=== PATIENT | female | born 1945 | race Two or more races ===

== ENCOUNTER 2018-05-07 09:42 | Inpatient (IN) | payer MEDICARE, OTHER ==
[~2018-05-07] VITALS: Ht 172.7 cm; Wt 93.4 kg
[~2018-05-07 09:42] MED LIST: ASPI-667 PO; ATOR40TA PO; CHOL100011 PO; ESCI10TA10 PO; METO25TA4 PO; TICA90TA PO
[2018-05-07 10:08] VITALS: BP_DIAS 164
[2018-05-07] MEDS ORDERED: DUONEB 0.5 MG-3 MG/3 ML SOLN IH STA (10:25)
[2018-05-07] MEDS ORDERED: PREDNISONE PO STA (10:25)
[2018-05-07] MEDS ORDERED: DECADRON IH STA (10:25)
--- NOTE | 2018-05-07 10:28 | ER.PDOC ---
General Chief Complaint: Chest Pain-Cardiac Nature Stated Complaint: FEVER,SOB,EARACHE,WEAKNESS Time seen by MD: 11:00 Exam Limitations: no limitations History of Present Illness Aspirin Today: 81 mg x 1 Associated Symptoms: cough, diaphoresis, fever/chills, shortness of breath Prior symptoms/Treatment: Similar symptoms previous Allergies: Coded Allergies: morphine (Verified Allergy, Unknown, Hives, 05/07/18) niacin (Verified Allergy, Unknown, Rash, 05/07/18) warfarin (Verified Allergy, Unknown, Rash, 05/07/18) Past Medical History Medical History: CVA/TIA/stroke, heart attack Surgical History: appendectomy, cholecystectomy, neck LMP (females 10-50): hysterectomy Social History Smoking: non-smoker Alcohol Use: occassionally Drug Use: none Reviewed Nursing Reviewed: Vital Signs, Abn. 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
[2018-05-07] MEDS ORDERED: PREDNISONE ONE (10:31)
--- NOTE | 2018-05-07 10:37 | PCM.EKG ---
[facility] Test Date: 2018-05-07 Test Time: 10:37:34 Pat Name: WENDI ALEJO Department: [id number] Room: Gender: F Assistant Track Coach: MARGARITA : 1945 Requested By: CHELSEA PEREIRA Order Number: [id number] Reading MD: Measurements Intervals [place] Rate: 90 P: 42 MS: 174 QRS: 14 QRSD: 86 T: 39 QT: 376 QTc: 459 Interpretive Statements Normal sinus rhythm Normal ECG No previous ECG available for comparison Please click the below link to view image of tracing.
[2018-05-07] MEDS: NORCO 10MG PO PRN ×2 (10:44→13:03)
[2018-05-07 10:45] LABS: BASOPHIL % 0.5 % (0.0-0.2); EOSINOPHIL # 0.2 10^3/uL (0.0-0.2); EOSINOPHIL % 3.2 % (0.0-5.0); HEMOGLOBIN 13.9 g/dL (12.0-15.0); LYMPHOCYTES # 1.3 10^3/uL (1.0-4.8); LYMPHOCYTES % 19.1 % (24.0-44.0); MEAN CELL HGB 31.1 pg (26-34); MEAN CELL HGB CONCENTRATION 34.1 g/dL (33-37); MEAN CORP VOLUME 91.3 fL (78-100); MEAN PLATELET VOLUME 10.1 fL (7.8-11.0); MONOCYTES # 0.8 10^3/uL (0.3-0.8); MONOCYTES % 11.6 % (5.0-12.0); NEUTROPHIL # 4.3 10^3/uL (1.8-7.7); NEUTROPHILS % 65.4 % (41.0-85.0); RED CELL DISTRIBUTION WIDTH 13.8 % (11.5-14.5); WHITE BLOOD CELL 6.5 10^3/uL (4.5-11.0)
--- NOTE | 2018-05-07 11:09 | NUR ---
RAD PT OUT OF ROOM
[2018-05-07 11:11] LABS: ALANINE AMINOTRANSFERASE(ML) 33 U/L (12-78); ALKALINE PHOSPHATASE 147 U/L (50-136); ASPARTATE AMINO TRANSFERASE 27 U/L (0-35); CALCIUM 9.2 mg/dL (8.4-10.5); CARBON DIOXIDE 26.3 mmol/L (20.0-32); GLUCOSE 111 mg/dL (70-110)
--- NOTE | 2018-05-07 11:52 | DIREP ---
PROCEDURE:CHEST 2 VIEWS COMPARISON:None. INDICATIONS:cap FINDINGS: LUNGS/PLEURA:Senescent changes. No significant pulmonary parenchymal abnormalities. No effusions. VASCULATURE:Normal. Unremarkable pulmonary vasculature. CARDIAC:Normal. No cardiac silhouette abnormality or cardiomegaly. MEDIASTINUM:Mediastinal contours are within normal limits with calcifications of the aorta. BONES:Minimal degenerative changes of the thoracic spine. Previous ACDF. OTHER:Apparent previous cholecystectomy. CONCLUSION:No acute cardiopulmonary abnormality. Dictated by: Lorenzo Mullins M.D. on 05/07/2018 at 11:49 AM
[2018-05-07] MEDS ORDERED: TORADOL IV STA (11:56)
[2018-05-07] MEDS ORDERED: NS 1000ML 1,000 ML IV ONE (12:00)
--- NOTE | 2018-05-07 12:00 | NUR ---
DR MOYER CALLED DR MOYER TO CONSULT ABOUT PT, LEFT MESSAGE TO RETURN HIS CALL
[2018-05-07] MEDS ORDERED: ZOFRAN ONE (12:24)
[2018-05-07] MEDS ORDERED: NS 1000ML 1,000 ML ONE (12:27)
[2018-05-07] MEDS ORDERED: TORADOL ONE (12:27)
[2018-05-07] MEDS ORDERED: ZOFRAN IV STA (12:29)
[2018-05-07] MEDS ORDERED: LEVAQUIN 100 ML IV ONE (12:43)
[2018-05-07] MEDS ORDERED: ATOR80TA PO (12:49)
[2018-05-07] MEDS ORDERED: LEVAQUIN 100 ML IV SCH (13:00)
[2018-05-07] MEDS ORDERED: ZOLP10TA PO (13:03)
[2018-05-07] MEDS ORDERED: ESOM40CA PO (13:03)
[2018-05-07] MEDS ORDERED: ESCI10TA10 PO (13:03)
[2018-05-07] MEDS ORDERED: ALPR0.25 PO (13:03)
[2018-05-07 13:09] VITALS: BP 105/47
--- NOTE | 2018-05-07 13:09 | NUR ---
ADMIT PATIENT TRANSFERRED TO MED SURG FROM ER VIA WHEELCHAIR ACCOMPANIED BY Katelyn VIRAMONTES RN. PATIENT TRANSFERRED FROM WHEELCHAIR TO BED INDEPENDENTLY. PATIENT V/S FOLLOWS: BP 137/72, HR 82, O2 SAT 94% RA, RR 16, AXILLARY TEMPERATURE 98.1F. PATIENT ALERT AND ORIENTED X3. DENIES ANY CONFUSION. PERRLA. 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 LUNGS CTA IN ALL LOBES. ABDOMEN SOFT AND NON-DISTENDED, BOWEL SOUNDS X4. LAST BM 05/05/18. PATIENT STATES URINE IS CLEAR, YELLOW AND OF NORMAL ODOR. PATIENT HAS OCCASIONAL STRESS INCONT. SKIN IN WARM, DRY AND INTACT, NO WOUNDS NOTED. NO EDEMA PRESENT. 20G IV TO RIGHT AC WITH NS AT 100ML/HR, NO IRRITATION OR S/S OF INFILTRATION NOTED. MEDICATIONS RECONCILED WITH PATIENT. PATIENT EDUCATED LIGHT OUT EXAMINER SYSTEM, BED OPERATION AND TREATMENT PLAN. PATIENT VOICES UNDERSTANDING. PATIENT REPORTS PAIN R/T HEADACHE. PAIN MEDICATION ADMINISTERED IN ER PRIOR TO TRANSFER TO FLOOR. BED IN LOW, LOCKED POSITION WITH SIDE RAILS UP X2. CALL LIGHT WITHIN. PATIENT ELVA NEEDS AT THIS TIME.
[2018-05-07] MEDS ORDERED: MULT1TAB9 PO (13:59)
[2018-05-07] MEDS ORDERED: VITA100C8 PO (13:59)
[2018-05-07] MEDS ORDERED: CHOL200059 PO (13:59)
[2018-05-07] MEDS ORDERED: TICA90TA PO (13:59)
[2018-05-07] MEDS ORDERED: [UNRECOGNIZED DRUG - CODE] PO (13:59)
--- NOTE | 2018-05-07 14:00 | NUR ---
JOÃO MOYER AT BEDSIDE. PATIENT C/O CONTINUED HEADACHE AND ITCHING ALL OVER. DR. MOYER PRESCRIBED BENADRYL AND PROVIDED TEACHING ON HEADACHE AND DIAGNOSIS. PATIENT DENIES QUESTIONS OR NEEDS AT THIS TIME. PATIENT VOICES UNDERSTANDING OF TEACHING. BED IN LOW LOCKED POSITION WITH SIDE RAILS UP X2. CALL LIGHT WITHIN REACH.
--- NOTE | 2018-05-07 14:24 | NUR ---
FOOD PATIENT PROVIDED TURKEY SANDWICH, CHIPS, APPLESAUCE AND DIET DR. IBARRA.
[2018-05-07] MEDS: DUONEB 0.5 MG-3 MG/3 ML SOLN IH SCH ×2 (14:36→21:45)
[2018-05-07] MEDS ORDERED: TYLENOL PO STA (14:59)
[2018-05-07 15:29] VITALS: BP 121/58
[2018-05-07 15:33] VITALS: BP 115/49
[2018-05-07] MEDS ORDERED: ULTRAM PO PRN (16:00)
[2018-05-07] MEDS ORDERED: ZOFRAN IV PRN (16:00)
[2018-05-07] MEDS ORDERED: TYLENOL PO PRN (16:00)
[2018-05-07] MEDS ORDERED: BENADRYL PO PRN (16:30)
[2018-05-07] MEDS ORDERED: BENADRYL PO ONE (16:43)
--- NOTE | 2018-05-07 17:26 | NUR ---
ITCHING PATIENT SITTING IN BED. PATIENT STATES THAT ITCHING HAS STOPPED. BED IN LOW LOCKED POSITION WITH SIDE RAILS UP X 2. CALL LIGHT WITHIN REACH.
[2018-05-07] MEDS ORDERED: NEXIUM PO SCH (17:30)
[2018-05-07] MEDS ORDERED: XANAX PO PRN (17:30)
[2018-05-07] MEDS ORDERED: AMBIEN PO PRN (17:30)
[2018-05-07] MEDS ORDERED: LEXAPRO PO SCH (17:30)
--- NOTE | 2018-05-07 17:48 | NUR ---
MEDICATION NOT AVAILABLE 1730 DOSE OF LEXAPRO AND NEXIUM UNAVAILABLE AT THIS TIME. CALL PLACED TO PHARMACY.
[2018-05-07] MEDS: ASPIRIN PO SCH (17:49)
--- NOTE | 2018-05-07 18:19 | NUR ---
REPORT REPORT GIVEN TO CERTIFIED REGISTERED LOCKSMITH.
--- NOTE | 2018-05-07 18:26 | NUR ---
Report Received report from Salazar Mackenzie RN
[2018-05-07 20:23] VITALS: BP 141/76
[2018-05-07] MEDS ORDERED: PROTONIX IV IV SCH (21:00)
[2018-05-07] MEDS: BENADRYL PO PRN (21:05)
[2018-05-07] MEDS: BRILINTA PO SCH (21:05)
[2018-05-07] MEDS: FLAGYL PO SCH (21:05)
[2018-05-07] MEDS: AMOXIL PO SCH (21:06)
[2018-05-07] MEDS ORDERED: CELEXA PO SCH (23:02)
[2018-05-07] MEDS ORDERED: PROTONIX PO SCH (23:03)
[2018-05-07] MEDS: VITAMIN D PO SCH (23:32)
[2018-05-07] MEDS: THERA PO SCH (23:32)
[2018-05-07] MEDS: VITAMIN E PO SCH (23:33)
[2018-05-08 00:17] VITALS: BP 127/65
--- NOTE | 2018-05-08 00:33 | NUR ---
PAtient resting in bed with eyes closed. Resp even and non labored. No s/s of distress noted at this time. Will continue to monitor. Call light within reach.
[2018-05-08] MEDS: DUONEB 0.5 MG-3 MG/3 ML SOLN IH SCH ×4 (03:02→21:00)
[2018-05-08 05:30] VITALS: BP 121/77
[2018-05-08 05:45] LABS: BASOPHIL % 0.4 % (0.0-0.2); EOSINOPHIL # 0.1 10^3/uL (0.0-0.2); EOSINOPHIL % 1.5 % (0.0-5.0); LYMPHOCYTES # 1.3 10^3/uL (1.0-4.8); LYMPHOCYTES % 23.9 % (24.0-44.0); MEAN CELL HGB 30.7 pg (26-34); MEAN CELL HGB CONCENTRATION 33.2 g/dL (33-37); MEAN CORP VOLUME 92.5 fL (78-100); MONOCYTES # 0.8 10^3/uL (0.3-0.8); NEUTROPHIL # 3.2 10^3/uL (1.8-7.7); NEUTROPHILS % 60.2 % (41.0-85.0); RED CELL DISTRIBUTION WIDTH 13.8 % (11.5-14.5); WHITE BLOOD CELL 5.4 10^3/uL (4.5-11.0)
[2018-05-08 06:02] LABS: CALCIUM 8.7 mg/dL (8.4-10.5); CARBON DIOXIDE 27.6 mmol/L (20.0-32)
--- NOTE | 2018-05-08 06:51 | NUR ---
Report Report given to Azra Nicolas RN
[2018-05-08 07:58] VITALS: BP 137/67
[2018-05-08] MEDS: FLAGYL PO SCH ×3 (09:00→21:05)
[2018-05-08] MEDS: AMOXIL PO SCH ×2 (09:00→21:05)
[2018-05-08] MEDS ORDERED: LEVAQUIN PO SCH (09:00)
[2018-05-08] MEDS: CELEXA PO SCH (09:16)
[2018-05-08] MEDS: PROTONIX PO SCH (09:17)
[2018-05-08] MEDS: BRILINTA PO SCH ×2 (09:17→21:06)
[2018-05-08] MEDS: LIPITOR PO SCH (09:17)
[2018-05-08] MEDS: NORCO 10MG PO PRN (11:23)
[2018-05-08 12:23] VITALS: BP 156/79
[2018-05-08] MEDS: BENADRYL PO PRN ×2 (16:11→21:09)
[2018-05-08 16:20] VITALS: BP 152/76
[2018-05-08] MEDS: VITAMIN E PO SCH (17:30)
[2018-05-08] MEDS: THERA PO SCH (17:45)
[2018-05-08] MEDS: VITAMIN D PO SCH (17:46)
[2018-05-08] MEDS: ASPIRIN PO SCH (17:47)
--- NOTE | 2018-05-08 19:46 | HPH ---
ADMIT DATE: 05/07/2018 CHIEF COMPLAINT: Numerous complaints including chest pain, fever, earache, weakness, shortness of breath. HISTORY OF PRESENT ILLNESS: The patient is a 72-year-old woman with a past medical history significant for prior CVA, prior history of coronary artery disease with history of occasional alcohol use, hyperlipidemia, chronic pain with opiate dependence. She presented to ER with complaints initially, numerous complaints including chest pain, shortness of breath, weakness. Upon arrival to the floor, her main complaint was pain in the epigastric region. She also has significant complaints of itching. She did receive a dose of IV Levaquin, but it is not clear if this is associated with that. Workup revealed she was positive for H. pylori antigen. She has never had H. pylori treatment. She complained of headache and asked for Dilaudid by name. It was explained to her that opiates sometimes make headaches worse. Through workup in the ER, there was no urinalysis checked and chest x-ray was clear. There was no evidence of infection other than H. pylori gastritis. PAST MEDICAL HISTORY: Includes prior CVA with no residual deficit, coronary artery disease, chronic pain with opiate dependence, depression and hyperlipidemia. PAST SURGICAL HISTORY: Includes appendectomy, cholecystectomy and neck surgery, hysterectomy. ALLERGIES: ALLERGIC TO MORPHINE, NIACIN AND WARFARIN. HOME MEDICATIONS: List provided by patient currently includes Xanax 0.25 mg as needed for anxiety, aspirin 81 mg daily, atorvastatin 80 mg daily, vitamin D daily, Lexapro 10 mg daily, Nexium 40 mg daily, multivitamin daily, Brilinta 90 mg b.i.d., Ambien at night as needed for insomnia. SOCIAL HISTORY: She lives at home. Denies tobacco use. Positive occasional alcohol use, no illicit drug use history. FAMILY HISTORY: Negative for early coronary artery disease or diabetes. REVIEW OF SYSTEMS: CARDIAC: Denies chest pain. At time of exam, she complained of chest pain in the ER, complained of shortness of breath, no dyspnea on exertion. PULMONARY: No cough, sputum production or pleuritic chest pain. GASTROINTESTINAL: Positive for nausea, no vomiting, diarrhea or constipation. All else negative in 10 point review of system except as in HPI. PHYSICAL EXAMINATION: VITAL SIGNS: Upon arrival to the ER: Height 172.7 cm, weight 93.4 kilograms. Temperature 99.0, pulse 96, respiratory rate 18, blood pressure is 105/47, O2 saturation 94% on room air. GENERAL: She is alert, in no acute distress at time of exam. HEENT: Pupils equal, round, reactive to light. Sclerae are anicteric. Oropharynx is clear. Mucous membranes are moist. NECK: Supple, no lymphadenopathy. CARDIOVASCULAR: At time of exam is regular rate and rhythm. LUNGS: Clear bilaterally. No wheezing. ABDOMEN: Soft. Bowel sounds are present, nontender to palpation. EXTREMITIES: No cyanosis, clubbing or significant edema. NEUROLOGIC: Grossly nonfocal. LABORATORY DATA: CBC: White count 6.5, hemoglobin 13.9 and platelets 168. Differential: 65% neutrophils, 19% lymphocytes, 11% monocytes. Sodium 138, potassium 4.1, chloride 105, CO2 is 26, BUN 10, creatinine 0.7, glucose 111, calcium is 9.2, total bilirubin 0.5, AST 27, ALT 33, alkaline phosphatase 147, total CK is 117, CK-MB 0.5, troponin I is less than 0.02. ProBNP is 196, total protein 6.9, albumin 3.4. H. pylori is positive. IMAGING STUDIES: Chest x-ray performed in the Emergency Room was negative for acute process. ASSESSMENT AND PLAN: The patient is a 72-year-old woman here with H. pylori gastritis, chronic pain with opiate dependence, anxiety disorder, hypertension, history of prior CVA. 1. We will start treatment for H. pylori gastritis with amoxicillin and metronidazole since clindamycin will interfere with her Brilinta, proton pump inhibitor twice a day. 2. Continue cardiovascular medications. 3. Appropriate p.r.n. pain and nausea medications. 4. Benadryl as needed for itching. Time spent with the patient on 05/07/2018 is 45 minutes. This plan was discussed with the patient. She is her own decision maker. She does understand and concur with plans. Tony Mullins MD DR: VICTORINA/abhilash JOB# [id number]
[2018-05-08 20:04] VITALS: BP 138/68
[2018-05-09] MEDS: DUONEB 0.5 MG-3 MG/3 ML SOLN IH SCH ×3 (03:00→11:50)
[2018-05-09 04:03] VITALS: BP 161/92
--- NOTE | 2018-05-09 06:50 | NUR ---
REPORT RECEIVED FROM SARAH RAMIRES.
[2018-05-09 07:48] VITALS: BP 162/84
--- NOTE | 2018-05-09 08:40 | NUR ---
DR MOYER AT BEDSIDE. ASSESSMENT COMPLETED. PATIENT AWAKE AND ALERT. RESPIRATIONS UNLABORED. HEART RATE REGULAR. ABDOMEN SOFT WITH ACTIVE BOWEL SOUNDS. GRIMACES WHEN TAKING A DEEP BREATH. PATIENT INDEPENDENT IN ROOM. NO DISTRESS NOTED. SALINE LOCK PRESENT IN RIGHT AC. SR UP X2. CALL LIGHT WITHIN REACH. PATIENT PLEASANT AND TALKATIVE. DENIES UNMET NEEDS.
[2018-05-09] MEDS ORDERED: ACET-685 PO (08:51)
[2018-05-09] MEDS ORDERED: METR250T PO (08:51)
[2018-05-09] MEDS ORDERED: AMOX500C PO (08:51)
[2018-05-09] MEDS ORDERED: PROM12.55 PO (08:51)
--- NOTE | 2018-05-09 08:54 | PRM.DC ---
Discharge Summary Date of Discharge: May 09, 2018 Reason for Visit: Abdominal pain Patient History: Cerebrovascular disorder 32 MOTHER G8 BROTHER G8 BROTHER History Present Illness: (1) COPD (chronic obstructive pulmonary disease) with acute bronchitis Status: Resolved ICD Code: J44.0 - Chronic obstructive pulmonary disease with acute lower respiratory infection; J20.9 - Acute bronchitis, unspecified SNOMED: 615769792008095 (2) H. pylori infection Status: Acute ICD Code: A04.8 - Other specified bacterial intestinal infections SNOMED: 877268553 Assessment & Plan: Continue oral antibiotics as outpatient as well as proton pump inhibitor General: Alert, Oriented X3, Cooperative, No acute distress HEENT: PERRLA, EOMI Neck: Supple, No JVD Lungs: Clear to auscultation, Normal air movement Heart: Regular rate, Normal S1, Normal S2 Abdomen: Normal bowel sounds, Soft Extremities: No clubbing, No cyanosis Skin: No breakdown Neuro: Normal speech, Strength at 5/5 X4 ext, Cranial nerves 3-12 NL Psych/Mental Status: Mood NL Results(Labs/Rad) Laboratory Tests Test 05/07/18 10:35 05/08/18 05:00 White Blood Count 6.5 10^3/uL 5.4 10^3/uL Red Blood Count 4.47 10^6/uL 4.24 10^6/uL Hemoglobin 13.9 g/dL 13.0 g/dL Hematocrit 40.8 % 39.2 % Mean Corpuscular Volume 91.3 fL 92.5 fL Mean Corpuscular Hemoglobin 31.1 pg 30.7 pg Mean Corpuscular Hemoglobin Concent 34.1 g/dL 33.2 g/dL Red Cell Distribution Width 13.8 % 13.8 % Platelet Count 168 10^3/uL 158 10^3/uL Mean Platelet Volume 10.1 fL 10.0 fL Neutrophils (%) (Auto) 65.4 % 60.2 % Lymphocytes (%) (Auto) 19.1 % 23.9 % Monocytes (%) (Auto) 11.6 % 14.0 % Neutrophils # (Auto) 4.3 10^3/uL 3.2 10^3/uL Lymphocytes # (Auto) 1.3 10^3/uL 1.3 10^3/uL Monocytes # (Auto) 0.8 10^3/uL 0.8 10^3/uL Absolute Immature Granulocyte (auto 0.01 10^3 u/L 0 10^3 u/L Eosinophils % 3.2 % 1.5 % Basophils % 0.5 % 0.4 % Basophils # 0.0 10^3/uL 0.0 10^3/uL Eosinophil Count 0.2 10^3/uL 0.1 10^3/uL Prothrombin Time 9.9 SEC Prothrombin Time INR (Non-Therap) 1.0 Activated Partial Thromboplast Time 25.3 SEC D-Dimer 0.54 mg/L Sodium Level 138 mmol/L 142 mmol/L Potassium Level 4.1 mmol/L 4.5 mmol/L Chloride Level 105.0 mmol/L 109.0 mmol/L Carbon Dioxide Level 26.3 mmol/L 27.6 mmol/L Anion Gap 10.8 9.9 Blood Urea Nitrogen 10 mg/dL 12 mg/dL Creatinine 0.75 mg/dL 0.80 mg/dL Estimated GFR () 91.9 85.3 BUN/Creatinine Ratio 13.0 15.0 Glucose Level 111 mg/dL 121 mg/dL Calcium Level 9.2 mg/dL 8.7 mg/dL Total Bilirubin 0.5 mg/dL Aspartate Amino Transf (AST/SGOT) 27 U/L Alanine Aminotransferase (ALT/SGPT) 33 U/L Alkaline Phosphatase 147 U/L Total Creatine Kinase 117 U/L Creatine Kinase MB 0.5 ng/mL Troponin I < 0.02 ng/mL Pro-B-Type Natriuretic Peptide 196 pg/mL Total Protein 6.9 g/dL Albumin 3.4 g/dL Globulin 3.5 Percent Immature Gran (Cell Imm) 0.20 % 0.00 % Helicobacter pylori Screen POSITIVE Scheduled Acetaminophen With Codeine (Tylenol With Codeine #3 Tablet), 1 EACH PO Q4HR Amoxicillin (Amoxicillin), 1,000 MG PO BID Aspirin (Samanta Chewable), 81 MG PO DAILY24, (Reported) Atorvastatin 80MG (Lipitor 80MG), 1 TAB PO DAILY, (Reported) Cholecalciferol (Vitamin D3) (Vitamin D), 2,000 UNIT PO DAILY24, (Reported) Escitalopram Oxalate (Lexapro), 1 TAB PO DAILY24, (Reported) Esomeprazole Magnesium (Nexium), 40 MG PO DAILY24, (Reported) Metronidazole (Flagyl), 500 MG PO TID Multivitamin/Iron/Folic Acid (Centrum Complete Multivit Tab), 1 EACH PO DAILY24, (Reported) Ticagrelor (Brilinta), 90 MG PO BID, (Reported) Vitamin E (Dl,Tocopheryl Acet) (Vitamin E), 400 UNIT PO DAILY24, (Reported) Scheduled PRN Alprazolam (Xanax), 0.25 MG PO PRN PRN for ANXIETY, (Reported) Promethazine Hcl (Promethazine Hcl), 1 TAB PO Q6 PRN for Nausea Zolpidem Tartrate (Ambien), 10 MG PO PRN PRN for MUSCLE SPASM, (Reported) Sepsis Evaluation @ Discharge 05/09/18 04:03 Course Sepsis Screening Results: Posi: NEGATIVE Sepsis Qualifier/Stage: NO DEFINITE RISK Vitals & review Data Vital Sign - Last 24 Hours 05/08/18 05/08/18 05/08/18 05/08/18 09:00 10:15 12:23 16:20 Temp 97.8 97.6 Pulse 69 59 59 Resp 18 18 20 B/P (MAP) 156/79 (104) 152/76 (101) Pulse Ox 96 95 96 O2 Delivery Room Air Room Air Room Air Room Air FiO2 21 05/08/18 05/08/18 05/08/18 05/09/18 20:04 20:36 22:13 04:03 Temp 97.8 97.7 Pulse 62 59 64 Resp 18 18 16 B/P (MAP) 138/68 (91) 161/92 (115) Pulse Ox 95 96 98 O2 Delivery Room Air Room Air Room Air Room Air 05/09/18 05/09/18 05/09/18 07:48 08:30 08:31 Temp 98.0 Pulse 68 83 83 Resp 20 16 16 B/P (MAP) 162/84 (110) Pulse Ox 94 93 93 O2 Delivery Room Air Room Air Intake and Output 05/08/18 05/08/18 05/09/18 15:00 23:00 07:00 Intake Total 236 ml 720 ml 368 ml Balance 236 ml 720 ml 368 ml Laboratory Tests Test 05/07/18 10:35 05/08/18 05:00 White Blood Count 6.5 10^3/uL 5.4 10^3/uL Red Blood Count 4.47 10^6/uL 4.24 10^6/uL Hemoglobin 13.9 g/dL 13.0 g/dL Hematocrit 40.8 % 39.2 % Mean Corpuscular Volume 91.3 fL 92.5 fL Mean Corpuscular Hemoglobin 31.1 pg 30.7 pg Mean Corpuscular Hemoglobin Concent 34.1 g/dL 33.2 g/dL Red Cell Distribution Width 13.8 % 13.8 % Platelet Count 168 10^3/uL 158 10^3/uL Mean Platelet Volume 10.1 fL 10.0 fL Neutrophils (%) (Auto) 65.4 % 60.2 % Lymphocytes (%) (Auto) 19.1 % 23.9 % Monocytes (%) (Auto) 11.6 % 14.0 % Neutrophils # (Auto) 4.3 10^3/uL 3.2 10^3/uL Lymphocytes # (Auto) 1.3 10^3/uL 1.3 10^3/uL Monocytes # (Auto) 0.8 10^3/uL 0.8 10^3/uL Absolute Immature Granulocyte (auto 0.01 10^3 u/L 0 10^3 u/L Eosinophils % 3.2 % 1.5 % Basophils % 0.5 % 0.4 % Basophils # 0.0 10^3/uL 0.0 10^3/uL Eosinophil Count 0.2 10^3/uL 0.1 10^3/uL Prothrombin Time 9.9 SEC Prothrombin Time INR (Non-Therap) 1.0 Activated Partial Thromboplast Time 25.3 SEC D-Dimer 0.54 mg/L Sodium Level 138 mmol/L 142 mmol/L Potassium Level 4.1 mmol/L 4.5 mmol/L Chloride Level 105.0 mmol/L 109.0 mmol/L Carbon Dioxide Level 26.3 mmol/L 27.6 mmol/L Anion Gap 10.8 9.9 Blood Urea Nitrogen 10 mg/dL 12 mg/dL Creatinine 0.75 mg/dL 0.80 mg/dL Estimated GFR () 91.9 85.3 BUN/Creatinine Ratio 13.0 15.0 Glucose Level 111 mg/dL 121 mg/dL Calcium Level 9.2 mg/dL 8.7 mg/dL Total Bilirubin 0.5 mg/dL Aspartate Amino Transf (AST/SGOT) 27 U/L Alanine Aminotransferase (ALT/SGPT) 33 U/L Alkaline Phosphatase 147 U/L Total Creatine Kinase 117 U/L Creatine Kinase MB 0.5 ng/mL Troponin I < 0.02 ng/mL Pro-B-Type Natriuretic Peptide 196 pg/mL Total Protein 6.9 g/dL Albumin 3.4 g/dL Globulin 3.5 Percent Immature Gran (Cell Imm) 0.20 % 0.00 % Helicobacter pylori Screen POSITIVE Current Medications Medications (Trade) Dose Ordered Sig/Temo PRN Reason Start Time Stop Time Status Last Admin Acetaminophen (Tylenol) 1,000 mg Q6H PRN PAIN MILD 05/07/18 16:00 06/06/18 15:59 05/08/18 10:56 Acetaminophen/ Hydrocodone Bitart ([place] 10mg) 1 each Q6H PRN PAIN 05/07/18 10:30 06/06/18 10:29 05/08/18 11:23 Albuterol/ Ipratropium (Duoneb 0.5 Mg-3 Mg/3 ml Soln) 3 ml RTQ6 05/07/18 15:00 06/06/18 14:59 05/08/18 03:02 Alprazolam (Xanax) 0.25 mg PRN PRN ANXIETY 05/07/18 17:30 06/06/18 17:29 Amoxicillin (Amoxil) 1,000 mg BID 05/07/18 21:00 06/06/18 20:59 05/08/18 21:05 Aspirin (Aspirin) 81 mg DAILY24 05/07/18 17:30 06/06/18 17:29 05/08/18 17:47 Atorvastatin Calcium (Lipitor) 80 mg DAILY 05/08/18 09:00 06/07/18 08:59 05/08/18 09:17 Cholecalciferol (Vitamin D) 2,000 unit DAILY24 05/07/18 17:30 06/06/18 17:29 05/08/18 17:46 Citalopram Hydrobromide (Celexa) 20 mg DAILY24 05/08/18 09:00 06/07/18 08:59 05/08/18 09:16 Diphenhydramine HCl (Benadryl) 25 mg Q4HR PRN ITCHING 05/07/18 21:00 06/06/18 16:29 05/08/18 21:09 Metronidazole (Flagyl) 500 mg TID 05/07/18 21:00 06/06/18 20:59 05/08/18 21:05 Ondansetron HCl (Zofran) 4 mg Q4H PRN NAUSEA / VOMITING 05/07/18 16:00 06/06/18 15:59 Pantoprazole Sodium (Protonix) 40 mg DAILY24 05/08/18 09:00 06/07/18 08:59 05/08/18 09:17 Ticagrelor (Brilinta) 90 mg BID 05/07/18 21:00 06/06/18 20:59 05/08/18 21:06 Tramadol HCl (Ultram) 50 mg Q4HR PRN PAIN 05/07/18 16:00 06/06/18 15:59 Vitamin E (Vitamin E) 400 unit DAILY24 05/07/18 17:30 06/06/18 17:29 05/08/18 17:30 Zolpidem Tartrate (Ambien) 10 mg HS PRN SLEEP 05/07/18 17:30 06/06/18 17:29 Plan Discharge Date: May 09, 2018 Dicharge DX: 1. H pylori gastritis, 2. Acute bronchitis with COPD Discharge Disposition: Stable Plan Medications per discharge list Diet and activity as tolerated Follow up with PCP 2-3 weeks Discharge plans discussed with patient, she is her own decision maker and does understand and concur with plans Time spent 25 minutes FAMILIA MOYER MD May 09, 2018 08:54
--- NOTE | 2018-05-09 10:18 | NUR ---
PATIENT SITTING UP IN BED. COUGHING EPISODE. REPORTS SPUTUM THICK YELLOW. STATES "AT LEAST I CAN BREATHE NOW." RESPIRATIONS UNLABORED. NO DISTRESS NOTED.
[2018-05-09] MEDS: BRILINTA PO SCH (10:20)
[2018-05-09] MEDS: LIPITOR PO SCH (10:21)
[2018-05-09] MEDS: PROTONIX PO SCH (10:21)
[2018-05-09] MEDS: AMOXIL PO SCH (10:22)
[2018-05-09] MEDS: CELEXA PO SCH (10:22)
[2018-05-09] MEDS: FLAGYL PO SCH (10:22)
--- NOTE | 2018-05-09 10:30 | NUR ---
DISCHARGE INSTRUCTIONS GIVEN TO PATIENT. INSTRUCTED RE:NEW MEDS, RESUME PREVIOUS ACTIVITY, REGULAR DIET. INSTRUCTED S/S TO REPORT TO MD. PATIENT HAS NO PCP SO INSTRUCTED RE: URGENT CARE. PATIENT VERBALIZES UNDERSTANDING. PATIENT REPORTS IT WILL BE A WHILE BEFORE HER FAMILY CAN PICK HER UP. INSTRUCTED PATIENT OK TO STAY IN ROOM.
--- NOTE | 2018-05-09 10:45 | NUR ---
DISCHARGE PLAN CM VISITED WITH PATIENT CONCERNING HER DISCHARGE PLAN AND NEED. PATIENT STATED SHE LIVES @ HOME WITH HER IN [place]. THEY ARE HERE IN TOWN BECAUSE THEY BOUGHT THE [employer] APARTMENTS AND SHE HAS BEEN TRYING TO UPDATE HER APARTMENT COMPLEX AND HIRE RELIABLE HELP. PATIENT DENIES NEEDING ADDITIONAL RESOURCES @ THIS TIME WITH CONTACT INFORMATION PROVIDED. CURRENT GOAL FOR PATIENT IS TO DISCHARGE BACK HOME TO ROUTINE SELF CARE UPON DISCHARGE. NO FURTHER CM OR DISCHARGE NEEDS KNOWN @ THIS TIME.
--- NOTE | 2018-05-09 11:45 | NUR ---
PATIENT REQUEST BREATHING TREATMENT. STATES "I FEEL LIKE IM REALLY CONGESTED. I DIDNT TAKE THE TREATMENT THIS MORNING, IF I CAN HAVE IT NOW." RT NOTIFIED.
[2018-05-09 11:55] VITALS: BP 162/84
--- NOTE | 2018-05-09 11:55 | NUR ---
PATIENT WITH COUGHING EPISODE. C/O PAIN AND TINGLING DOWN BOTH ARMS AND PAIN TO CHEST. PATIENT ANXIOUS. INSTRUCTED PATIENT RE: POSSIBLE BROCHOSPASM. RT TO GIVE TREATMENT. MEDICATED PATIENT WITH TRAMADOL AND XANAX. PATIENT LYING IN BED. NO COUGH NOTED AFTER BREATHING TX. REPORTS CONTINUED PAIN IN CHEST AND TINGLING IN ARMS. SR UP X2. CALL LIGHT WITHIN REACH.
--- NOTE | 2018-05-09 12:10 | NUR ---
PATIENT CONTINUES TO C/O PAIN IN CHEST AND TINGLING IN ARMS. PATIENT STATES SHE HAS 5 CARDIAC STINTS. NOTIFIED RT AND CHARGE NURSE LOVE. PATIENT TO HAVE AN EKG. DR MOYER NOTIFIED. RT AT BEDSIDE PERFORMING EKG.
--- NOTE | 2018-05-09 12:14 | PCM.EKG ---
[facility] Test Date: 2018-05-09 Test Time: 12:17:13 Pat Name: WENDI ALEJO Department: Room: 311 A Gender: F Seismograph Observer: : 1945 Requested By: FAMILIA MOYER Order Number: [id number] Reading MD: Brent Phelps Measurements Intervals [place] Rate: 76 P: 17 [place]: 160 QRS: 25 QRSD: 88 T: 34 QT: 418 QTc: 470 Interpretive Statements Normal sinus rhythm Normal ECG No previous ECG available for comparison Electronically Signed On 05-09-2018 15:35:37 CDT by Brent Phelps Please click the below link to view image of tracing.
--- NOTE | 2018-05-09 12:20 | NUR ---
DR MOYER RESPONDS PATIENT WITH ANXIETY. OK TO CONTINUE TO DISCHARGE.
--- NOTE | 2018-05-09 12:35 | NUR ---
PATIENT LYING IN BED. REPORTS PAIN HAS DECREASED AND JUST CONTINUES TO HAVE "A LITTLE TINGLING IN MY LEFT HAND. THAT WAS SCARY!" EMOTIONAL SUPPORT GIVEN. INSTRUCTED PATIENT EKG WAS NORMAL. ENCOURAGED TO REST AT HOME AND DRINK WARM LIQUIDS INSTEAD OF COLD LIQUIDS. PATIENT REPORTS "I COUGHED UP A LOT OF STUFF AFTER THAT BREATHING TREATMENT. PATIENT CALM. REPORTS GRANDKIDS COMING TO PICK HER UP.
--- NOTE | 2018-05-09 13:30 | NUR ---
PATIENT DISCHARGED TO HOME WITH GRANDDAUGHTERS. PATIENT TO PRIVATE CAR VIA . NO DISTRESS NOTED AT DISCHARGE.
--- NOTE | 2018-05-09 18:07 | PNH ---
DATE: 05/08/2018 SUBJECTIVE: She has nonspecific complaints including headache. No other acute events. She has not been ambulating outside the room. OBJECTIVE: VITAL SIGNS: T-max last 24 hours is 97.8, pulse 57, respiratory rate is 18, blood pressure 137/67, O2 saturation 97% on room air. GENERAL: She is alert, in no acute distress at time of exam. HEENT: Pupils equal, round, reactive to light. Sclerae are anicteric. Oropharynx is clear. Mucous membranes are moist. NECK: Supple, no lymphadenopathy. CARDIOVASCULAR: At time of exam is regular rate and rhythm. LUNGS: Clear bilaterally. No wheezing. ABDOMEN: Soft. Bowel sounds are present. EXTREMITIES: No cyanosis, clubbing, edema. NEUROLOGIC: Grossly nonfocal. LABORATORY DATA: CBC: White count 5.4, hemoglobin 13.0, platelets 158. Sodium 142, potassium 4.5, chloride 109, CO2 is 27, BUN 12, creatinine 0.8, glucose 121 and calcium is 8.7. ASSESSMENT AND PLAN: The patient is a 72-year-old woman here with H. pylori gastritis, chronic pain with opiate dependence and hypertension. 1. Continue current treatment for H. pylori. 2. Encourage ambulation. 3. Labs and vital signs are within normal limits. Encourage the patient to ambulate well. Likely discharge tomorrow morning. Time spent on 05/08/2018 is 25 minutes. Tony Mullins MD DR: VICTORINA/abhilash JOB# [id number]
== END 2018-05-09 13:51 | disposition home or self-care (01) | DRG 392 ==
LOC: ER 09:42 → MS 12:39 → OBSVTOIN 12:39
PROVIDERS: ADMIT Internal Medicine; ATTEND Internal Medicine
DX: K29.70 Gastritis, unspecified, without bleeding (principal); F11.20 Opioid dependence, uncomplicated; J44.0 Chronic obstructive pulmonary disease with (acute) lower respiratory infection; G89.29 Other chronic pain; F41.9 Anxiety disorder, unspecified; I10 Essential (primary) hypertension; Z86.73 Personal history of transient ischemic attack (TIA), and cerebral infarction without residual deficits; B96.81 Helicobacter pylori [H. pylori] as the cause of diseases classified elsewhere; E78.5 Hyperlipidemia, unspecified; I25.10 Atherosclerotic heart disease of native coronary artery without angina pectoris; J20.9 Acute bronchitis, unspecified; F32.9 Major depressive disorder, single episode, unspecified; G47.00 Insomnia, unspecified; L29.9 Pruritus, unspecified; I25.2 Old myocardial infarction; Z90.710 Acquired absence of both cervix and uterus; Z82.3 Family history of stroke; Z90.49 Acquired absence of other specified parts of digestive tract; Z88.8 Allergy status to other drugs, medicaments and biological substances; Z88.6 Allergy status to analgesic agent; Z79.899 Other long term (current) drug therapy; Z79.82 Long term (current) use of aspirin
CPT/HCPCS: 36415; 71046; 80048; 80053; 82550; 82553; 83880; 84484; 85025; 85379; 85610; 85730; 86677; 93005; 94640; 96374; 96375; 99285; G0378; J1100; J1885; J1956; J2405; J7030; J7512; J7620; Q0163

== ENCOUNTER 2018-05-09 17:57 | Observation (INO) | payer MEDICARE, OTHER ==
[~2018-05-09] VITALS: Ht 172.7 cm; Wt 95.0 kg
[~2018-05-09 17:57] MED LIST changes: +ACET-685 PO; +ALPR0.25 PO; +AMOX500C PO; +ATOR80TA PO; +CHOL200059 PO; +ESOM40CA PO; +METR250T PO; +MULT1TAB9 PO; +PROM12.55 PO; +VITA100C8 PO; +ZOLP10TA PO; +[UNRECOGNIZED DRUG - CODE] PO
[2018-05-09 18:03] VITALS: BP 162/80
[2018-05-09] MEDS ORDERED: ASPIRIN ONE (18:38)
--- NOTE | 2018-05-09 18:39 | PCM.EKG ---
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
[2018-05-09 18:49] LABS: BASOPHIL % 0.5 % (0.0-0.2); EOSINOPHIL # 0.4 10^3/uL (0.0-0.2); EOSINOPHIL % 6.2 % (0.0-5.0); HEMOGLOBIN 14.4 g/dL (12.0-15.0); LYMPHOCYTES # 1.5 10^3/uL (1.0-4.8); LYMPHOCYTES % 24.1 % (24.0-44.0); MEAN CELL HGB 31.1 pg (26-34); MEAN CELL HGB CONCENTRATION 34.3 g/dL (33-37); MEAN CORP VOLUME 90.7 fL (78-100); MEAN PLATELET VOLUME 9.9 fL (7.8-11.0); MONOCYTES # 0.7 10^3/uL (0.3-0.8); MONOCYTES % 11.1 % (5.0-12.0); NEUTROPHIL # 3.5 10^3/uL (1.8-7.7); NEUTROPHILS % 57.6 % (41.0-85.0); RED CELL DISTRIBUTION WIDTH 13.6 % (11.5-14.5)
--- NOTE | 2018-05-09 18:52 | DIREP ---
PROCEDURE:CHEST 1 VIEW COMPARISON:[facility], CR, XRAY CHEST 2 VWS, 05/07/2018, 10:59 AM. INDICATIONS:Chest pain FINDINGS: LUNGS/PLEURA:No significant pulmonary parenchymal abnormalities. No effusions. VASCULATURE:Normal. Unremarkable pulmonary vasculature. CARDIAC:Normal. No cardiac silhouette abnormality or cardiomegaly. MEDIASTINUM:Normal. No visible mass or adenopathy. BONES:Anterior cervical fusion. OTHER:Elevated right hemidiaphragm. EKG leads overlie the chest. CONCLUSION:No acute cardiopulmonary abnormalities. Dictated by: Tj Burnett M.D. on 05/09/2018 at 06:50 PM
--- NOTE | 2018-05-09 18:55 | ER.PDOC ---
General Chief Complaint: Chest Pain-Cardiac Nature Stated Complaint: CHEST PAIN Time seen by MD: 18:52 Source: patient Exam Limitations: no limitations History of Present Illness Initial Comments chest pain this today. Patient got released from hospital here today. Had chest pain before discharge and continued at home. Severity/Quality: moderate, pressure Radiation: arms (left) Nitro Today/Relief: 0.4 mg x 1 Aspirin Today: 325 mg x 1, Provided By ED Associated Symptoms: shortness of breath Allergies: Coded Allergies: morphine (Verified Allergy, Unknown, Hives, 05/07/18) niacin (Verified Allergy, Unknown, Rash, 05/07/18) warfarin (Verified Allergy, Unknown, Rash, 05/07/18) Home Meds Active Scripts Promethazine Hcl (PROMETHAZINE HCL) 12.5 Mg Tablet, 1 TAB PO Q6 PRN for Nausea for 7 Days, #20 TAB Prov:FAMILIA MOYER MD 05/09/18 Acetaminophen With Codeine (TYLENOL WITH CODEINE #3 TABLET) 1 Each Tablet, 1 EACH PO Q4HR for Pain for 7 Days, #20 TAB Prov:FAMILIA MOYER MD 05/09/18 Metronidazole (FLAGYL) 250 Mg Tablet, 500 MG PO TID for 5 Days, #15 TABLET Prov:FAMILIA MOYER MD 05/09/18 Amoxicillin (AMOXICILLIN) 500 Mg Capsule, 1000 MG PO BID for 5 Days, #20 CAPSULE Prov:FAMILIA MOYER MD 05/09/18 Reported Medications Vitamin E (Dl,Tocopheryl Acet) (Vitamin E) 100 Unit Capsule, 400 UNIT PO DAILY24 , CAPSULE 05/07/18 Cholecalciferol (Vitamin D3) (Vitamin D) 2,000 Unit Tablet, 2000 UNIT PO DAILY24 , TABLET 05/07/18 Multivitamin/Iron/Folic Acid (CENTRUM COMPLETE MULTIVIT TAB) 1 Each Tablet, 1 EACH PO DAILY24, TABLET 05/07/18 Aspirin (KIERRA CHEWABLE) 81 Mg Tab.chew, 81 MG PO DAILY24, TAB.CHEW 05/07/18 Ticagrelor (BRILINTA) 90 Mg Tablet, 90 MG PO BID, TABLET 05/07/18 Alprazolam (XANAX) 0.25 Mg Tablet, 0.25 MG PO PRN PRN for ANXIETY, TABLET 05/07/18 Zolpidem Tartrate (AMBIEN) 10 Mg Tablet, 10 MG PO PRN PRN for MUSCLE SPASM, TABLET 05/07/18 Esomeprazole Magnesium (NEXIUM) 40 Mg Capsule.dr, 40 MG PO DAILY24 05/07/18 Escitalopram Oxalate (LEXAPRO) 10 Mg Tablet, 1 TAB PO DAILY24, #90 TAB 3 Refills 05/07/18 Atorvastatin 80MG (LIPITOR 80MG) 80 Mg Tablet, 1 TAB PO DAILY, #30 TAB 5 Refills 05/07/18 Cholecalciferol (Vitamin D3) (VITAMIN D) 1,000 Unit Capsule, 1000 UNIT PO DAILY , CAPSULE 08/10/17 Escitalopram Oxalate (LEXAPRO) 10 Mg Tablet, 10 MG PO DAILY, TABLET 08/10/17 Atorvastatin 40MG (LIPITOR 40MG) 40 Mg Tablet, 40 MG PO DAILY, TAB 08/10/17 Metoprolol Tartrate 25MG (LOPRESSER 25MG) 25 Mg Tablet, 25 MG PO DAILY for HYPERTENSION, #60 TAB 08/10/17 Aspirin (ASPIRIN) 81 Mg Tab.chew, 81 MG PO DAILY, TAB.CHEW 08/10/17 Ticagrelor (BRILINTA) 90 Mg Tablet, 90 MG PO BID, TABLET 08/10/17 Past Medical History Medical History: cardiac problems, COPD, heart attack Surgical History: appendectomy, cholecystectomy, hysterectomy, stent, tonsillectomy LMP (females 10-50): hysterectomy Social History Alcohol Use: rarely Drug Use: none Constitutional: no symptoms reported EENTM: no symptoms reported Respiratory: see HPI Cardiovascular: see HPI Gastrointestinal: no symptoms reported Genitourinary: no symptoms reported All Other Systems: Reviewed and Negative Physical Exam General Appearance: No Apparent Distress, WD/WN, Anxious Neck: Non-Tender, Full Range of Motion, Supple, Normal Inspection Respiratory: chest non-tender, lungs clear, normal breath sounds, no respiratory distress, no accessory muscle use Cardiovascular: Normal Peripheral Pulses, Regular Rate, Rhythm, No Edema, No Gallop, No JVD, No Murmur Gastrointestinal: Normal Bowel Sounds, No Organomegaly, No Pulsatile Mass, Non Tender, Soft Extremities: Normal Range of Motion, Non-Tender, Normal Inspection, No Pedal Edema, No Calf Tenderness, Normal Capillary Refill Neurologic/Psychiatric: machine 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 servicer II-XII NML as Tested, No Motor/Sensory Deficits, Alert, Normal Mood/Affect, Oriented x 3 Skin: Normal Color, Warm/Dry Lymphatic: No Adenopathy Results/Orders Results/Orders Laboratory Tests Test 05/09/18 18:45 White Blood Count 6.0 10^3/uL (4.5-11.0) Red Blood Count 4.63 10^6/uL (4.00-5.20) Hemoglobin 14.4 g/dL (12.0-15.0) Hematocrit 42.0 % (36.0-46.0) Mean Corpuscular Volume 90.7 fL (78-100) Mean Corpuscular Hemoglobin 31.1 pg (26-34) Mean Corpuscular Hemoglobin Concent 34.3 g/dL (33-37) Red Cell Distribution Width 13.6 % (11.5-14.5) Platelet Count 191 10^3/uL (150-400) Mean Platelet Volume 9.9 fL (7.8-11.0) Neutrophils (%) (Auto) 57.6 % (41.0-85.0) Lymphocytes (%) (Auto) 24.1 % (24.0-44.0) Monocytes (%) (Auto) 11.1 % (5.0-12.0) Neutrophils # (Auto) 3.5 10^3/uL (1.8-7.7) Lymphocytes # (Auto) 1.5 10^3/uL (1.0-4.8) Monocytes # (Auto) 0.7 10^3/uL (0.3-0.8) Absolute Immature Granulocyte (auto 0.03 10^3 u/L (0-2) Eosinophils % 6.2 % (0.0-5.0) Basophils % 0.5 % (0.0-0.2) Basophils # 0.0 10^3/uL (0.0-0.1) Eosinophil Count 0.4 10^3/uL (0.0-0.2) Percent Immature Gran (Cell Imm) 0.50 % (0.00-0.50) Progress Progress Spoke to Dr. Phelps who plans to take patient to the laborer bituminous paving in the morning. EKG/XRAY/CT/US EKG: NSR XRAY: chest (No acute abnormalities) Departure Time of Disposition: 20:30 Disposition: 09 ADMITTED INPATIENT Impression: Primary Impression: NSTEMI (non-ST elevated myocardial infarction) Condition: Stable Referrals: PCP,UNKNOWN (PCP) PRIMARY CARE PROVIDER Duration or Time Spent with Pa: 60 mins Critical Care Note Total Time (mins): 60 DARYL CRUZ MD May 09, 2018 18:55
[2018-05-09] MEDS ORDERED: ASPIRIN PO PRN (19:00)
[2018-05-09] MEDS ORDERED: NITROSTAT SL PRN (20:00)
[2018-05-09] MEDS ORDERED: LOVENOX SQ STA (20:14)
--- NOTE | 2018-05-09 20:23 | NUR ---
DR JOÃO MOYER CALLED TO SPEAK WITH DR CRUZ STATES HE WANTS HIM TO SPEAK WITH DR SWEET REGARDING ADMISSION DUE TO THE HIGH RISK OF CORONARY BLOCKAGE.
--- NOTE | 2018-05-09 20:24 | NUR ---
DR MICKI CHRISTIAN MBA ON THE PHONE WITH DR SWEET REGARDING PATIENT ADMISSION.
[2018-05-09] MEDS: PROTONIX PO SCH (20:30)
--- NOTE | 2018-05-09 20:38 | PRM.ACF1 ---
Date and Time Date and Time Time: 20:37 Admission Criteria Forms MYOCARDIAL INFARCTION Clinical Indications for Admission to Inpatient Care ([facility] [place]/check the applicable condition/criteria) Admission is indicated for 1 or more of the following (1)(2)(3)(4)(5)(6)(7)(8) [x ]I. Acute CT Extended stay beyond goal length of stay may be needed for(1)(2)(5)(16)(27)(28)( 29)(30): [ ]I. Hemodynamic instability, persisting symptoms after intensive medical management, or recurring severe prolonged symptoms (14)(31)(32)(33) [ ]II. Intravascular procedural complications such as acute vessel closure, stent thrombosis, stent malposition, or vessel dissection(34)(35)(36)(37) [ ]a. Anticipate urgent repeat intervention or surgery. [ ]III. Extravascular procedural complications such as retroperitoneal hematoma , pericardial effusion, or cardiac tamponade [ ]a. Anticipate imaging, echocardiography, pericardiocentesis, or surgery. [ ]IV. Entry site complications causing bleeding, hematoma, or distal ischemia , and requiring ongoing monitoring, surgical repair, or surgical thrombectomy [ ]V. Dangerous arrhythmia [ ]a. Urgent rhythm or rate control measures may be required. [ ]. Complicated percutaneous coronary intervention (eg, unsuccessful percutaneous coronary intervention or percutaneous coronary intervention of non- [place] vessel) [ ]VII. Urgent or emergent surgery for complications of CT (eg, ventricular rupture, valvular insufficiency) (38) [ ]VIII.Surgical revascularization via CABG (39) [ ]IX. Heart failure (eg, pulmonary edema) [ ]a. Anticipate diuretic, afterload reduction, and inotropic intervention as indicated. [ ]b. Pulmonary artery catheter, intra-aortic balloon pump, inotropic and vasopressor agents, ventricular assist device, noninvasive ventilation, or continuous positive airway pressure may be required for cardiogenic shock. [ ]X . Unstable pulmonary comorbidities (eg, COPD, pneumonia) (40) [ ]XI. Acute renal failure(41)(42) [ ]a. Expect monitoring, medication adjustment, and possible dialysis. The original [employer] content created by [employer] has been revised. The portions of the content which have been revised are identified through the use of italic text or in bold, and [facility] has neither reviewed nor approved the modified material. All other unmodified content is copyright [facility] Please see references footnoted in the original [facility] edition 2017 DARYL CRUZ MD May 09, 2018 20:38
[2018-05-09] MEDS ORDERED: SUBLIMAZE ONE (20:56)
[2018-05-09] MEDS ORDERED: SUBLIMAZE IV STA (20:57)
[2018-05-09] MEDS: XANAX PO PRN (22:02)
[2018-05-09] MEDS: FLAGYL PO SCH (22:03)
[2018-05-09] MEDS: BRILINTA PO SCH (22:03)
[2018-05-09] MEDS: AMOXIL PO SCH (22:29)
[2018-05-09 22:40] VITALS: BP 157/96
[2018-05-09] MEDS: TYLENOL #3 PO SCH (23:43)
[2018-05-10] MEDS ORDERED: ZOFRAN IV PRN
--- NOTE | 2018-05-10 00:01 | NUR ---
PT IS NPO
[2018-05-10] MEDS ORDERED: HYDROMORPHONE HCL ONE ×2 (00:08→04:38)
[2018-05-10] MEDS ORDERED: HYDROMORPHONE HCL IV ONE (00:12)
[2018-05-10 01:27] VITALS: BP 164/94
--- NOTE | 2018-05-10 01:30 | NUR ---
PT CLIPPER FOR HEART CATH SHOWERED TAKEN WITH SURGICAL SCRUB. VCOMPLETE LINEN AND GOWN CHANGE.
[2018-05-10] MEDS: TYLENOL #3 PO SCH ×5 (03:51→20:47)
[2018-05-10] MEDS: HYDROMORPHONE HCL IV ONE ×2 (04:54→04:57)
[2018-05-10 05:15] VITALS: BP 131/71
--- NOTE | 2018-05-10 06:40 | NUR ---
REPORT RECEIVED REPORT, ASSUMED CARE FOR PATIENT AT THIS TIME.
[2018-05-10] MEDS ORDERED: SUBLIMAZE ONE (09:25)
[2018-05-10] MEDS ORDERED: HEPARIN ONE (09:25)
[2018-05-10] MEDS ORDERED: NITROGLYCERIN 25MG/D5W 250ML 250 ML IV ONE (09:26)
[2018-05-10] MEDS ORDERED: VERSED ONE (09:26)
[2018-05-10] MEDS ORDERED: XYLOCAINE ONE (09:26)
[2018-05-10] MEDS ORDERED: NS 1000ML 1,000 ML ONE (09:34)
[2018-05-10 12:00] VITALS: BP 134/91
--- NOTE | 2018-05-10 12:00 | NUR ---
ARRIVAL PATIENT ARRIVED BACK ON MED-SURG FLOOR AT THIS TIME. RECEIVED REPORT FROM RONNI REYES. ASSUMED CARE FOR PATIENT.
--- NOTE | 2018-05-10 12:30 | CNH ---
DATE OF CONSULTATION: 05/10/2018 HISTORY OF PRESENT ILLNESS: The patient is a 72-year-old female with a history of coronary artery disease. She has had recent PCI done in [place]. She presented with substernal chest pain. She was admitted to this hospital several days ago with what was diagnosed as a COPD exacerbation and she was discharged home. She came back into the hospital last night complaining of substernal chest pain. Initial troponin was negative. Second troponin came back at 0.58. The third had risen up to 0.63. The diagnosis for this admission is non-STEMI. Today, she is still complaining of feeling some mild discomfort in the chest, but it is very vague. She has been on nitro paste. By her reported history, she thinks she has had 5 stents. She said first time she went in she got 2 stents and the second time she went in she got 3 more, which remains to be seen. CURRENT MEDICATIONS: 1. Brilinta 90 mg b.i.d. 2. Metronidazole 500 mg t.i.d. 3. Metoprolol tartrate 25 mg. 4. Pantoprazole 40 mg daily. 5. Celexa 20 mg daily. 6. Atorvastatin 40 mg daily. 7. Amoxicillin 1000 mg b.i.d. 8. Xanax 0.25 mg p.r.n. 9. Acetaminophen, codeine one p.o. q.4 hours. 10. Aspirin 325 mg p.r.n. chest pain. 11. Zofran 4 mg q.4 hours p.r.n. nausea. 12. Dilaudid 1 mg every 4 hours p.r.n. pain. PHYSICAL EXAMINATION: GENERAL: She is a well-appearing 72-year-old female in no acute distress. VITAL SIGNS: Her blood pressure is 157/96 and her heart rate is 72 beats per minute and regular. HEENT: Unremarkable. NECK: Without JVD or bruits. CHEST: Coarse rhonchi at the bases bilaterally. HEART: Regular rate and rhythm without murmurs, gallops, rubs or clicks. ABDOMEN: Nontender. EXTREMITIES: Without cyanosis, clubbing or edema. Peripheral pulses are intact throughout. NEUROLOGIC: She has no focal neurologic deficits. IMAGING STUDIES: Electrocardiogram shows normal sinus rhythm and is normal EKG without ST changes. IMPRESSION: Non-ST elevation myocardial infarction in the presence of recent PCI. PLAN: Coronary angiogram this morning and PCI if indicated. We will keep her n.p.o. until after her clinical genetics laboratory chief procedure. SANDEEP SWEET MD DR: LAWRENCE/abhilash JOB# [id number]
--- NOTE | 2018-05-10 12:40 | NUR ---
PATIENT REPORTS SEVERE PAIN. GIVEN TYLENOL #3. WILL CONTINUE TO ASSESS FOR EFFECTIVENESS. CALL LIGHT IN REACH, BED IS LOW AND LOCKED. WILL CONTINUE TO MONITOR.
--- NOTE | 2018-05-10 12:48 | CCRH ---
DATE OF SERVICE: 05/10/2018 PROCEDURES: 1. Left heart catheterization. 2. Selective coronary angiography. 3. Left ventricular angiography. CLINICAL INDICATIONS: The patient is a 72-year-old female who was admitted 1 week prior with a COPD exacerbation. She was readmitted with chest discomfort. Troponin was mildly elevated at 0.56, then 0.67, then 0.52. No EKG changes. She was diagnosed with an NSTEMI and we elected to perform coronary angiography. DESCRIPTION OF PROCEDURE: After informed consent was obtained, the patient was brought to the cardiac catheterization lab and was prepped and draped in the usual fashion. A 6-Cambodian sheath was placed in the right radial artery. Multiple attempts were made to advance the catheter into the ascending aorta. The anatomy; however, was such that this was not feasible. She had a normal appearing brachiocephalic artery, but the ascending aorta was high riding which would have required us to advance the catheter up to the arch and then back down into the ascending aorta. We abandoned the radial approach and elected to go to the femoral approach. The right femoral artery was locally infiltrated with 2% lidocaine. A 18 guage perc needle was easily advanced into the femoral artery. Over a wire; however, we were unable to advance the sheath into the artery. It tended to fold up as soon as it got to the artery. We abandoned that procedure. Manual pressure was held for hemostasis and we changed to the left femoral artery. The left groin was locally infiltrated with 2% lidocaine. A 6-Cambodian sheath was placed in the left femoral artery with ease and without any resistance. A 6-Cambodian JL4 coronary catheter was used for selective angiography of the left coronary artery. A 6-Cambodian JR4 was used for selective angiography of the right coronary artery. A 5-Cambodian angled pigtail catheter was advanced retrograde into the left ventricle. Left ventricular angiography was performed in the QUIGLEY projection. Following this, an angiogram was performed of the left common femoral artery to assess suitability for closure. Over a wire, the introducer sheath was removed and a 6-Cambodian Angio-Seal device was deployed in the usual fashion. Simultaneously, a normal size TR band was placed and the radial sheath was withdrawn. RESULTS: The left coronary artery has proximal stent in the proximal LAD, which was widely patent and free of restenosis or thrombosis. The circumflex coronary artery was normal. The right coronary artery has an existing stent in the distal portion just before the posterior descending takeoff. There are diffuse luminal irregularities, but no occlusive disease. There is no restenosis or thrombosis in the right coronary stent. Left ventricle shows obvious signs of stress cardiomyopathy (Takotsubo). The end-diastolic pressure was elevated and there is severe hypokinesis or akinesis of the LV apex. CONCLUSION: 1. Nonocclusive coronary artery disease with 2 existing stents that are free of stenosis and restenosis. 2. Severe hypokinesis of the LV apex consistent with stress cardiomyopathy. SANDEEP SWEET MD DR: LAWRENCE/abhilash JOB# [id number] FINA
--- NOTE | 2018-05-10 13:25 | NUR ---
ASSISTED PATIENT TO USE BEDPAN AT THIS TIME.
[2018-05-10] MEDS: BRILINTA PO SCH ×2 (14:46→20:47)
[2018-05-10] MEDS: LOPRESSER PO SCH (14:57)
[2018-05-10] MEDS: CELEXA PO SCH (14:57)
[2018-05-10] MEDS: FLAGYL PO SCH ×3 (14:58→20:48)
[2018-05-10] MEDS: LIPITOR PO SCH (14:58)
[2018-05-10] MEDS: AMOXIL PO SCH ×2 (14:58→20:48)
[2018-05-10] MEDS: HYDROMORPHONE HCL IV PRN (14:59)
--- NOTE | 2018-05-10 15:24 | NUR ---
LEFT FEMORAL AND RIGHT FEMORAL HEART CATH SITES CLEAN, DRY, AND INTACT. RIGHT RADIAL SITE CDI. PATIENT DOING WELL. WILL CONTINUE TO MONITOR. Addendum: 05/10/18 at 1526 by Zoraida Mobley LVN-MS BUILDING MAINTENANCE MECHANIC Amended: Links added.
--- NOTE | 2018-05-10 16:55 | NUR ---
DISCHARGE PLAN CM VISITED WITH PATIENT REGARDING DISCHARGE PLAN AND NEEDS. PATIENT LIVES AT HOME WITH HER ADULT CHILDREN IN [place]. SHE IS IN TOWN BECAUSE SHE OWNS AN APARTMENT COMPLEX HERE. 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 SHE HAS A WALKER THAT SHE USES OCCASIONALLY. DISCHARGE GOAL IS TO DISCHARGE HOME WITH HER FAMILY. CM DEPT WILL CONTINUE TO MONITOR DISCHARGE NEEDS.
[2018-05-10 17:57] VITALS: BP 115/71
[2018-05-10 20:18] VITALS: BP 120/65
[2018-05-10] MEDS: PROTONIX PO SCH (20:47)
[2018-05-11] VITALS (7 sets, daily range): BP systolic 115–130; BP diastolic 67–81
[2018-05-11] MEDS: TYLENOL #3 PO SCH ×6 (00:58→20:11)
--- NOTE | 2018-05-11 08:09 | HPH ---
ADMIT DATE: 05/10/2018 CHIEF COMPLAINT: Chest pain. HISTORY OF PRESENT ILLNESS: Please refer to history and physical dictated by me on 05/08/2018 for full details. The patient was discharged yesterday after being admitted with some chest pain with normal cardiac workup and H. pylori gastritis. She is discharged on treatment for H. pylori gastritis. She does have a cardiac history, and has stents placed. She was treated with Brilinta. She was treated with amoxicillin and metronidazole instead of clarithromycin to avoid drug-drug interaction. She returned to the ER that same evening with complaint of chest pain. EKG was normal. She did have a mild elevated troponin. PAST MEDICAL HISTORY, PAST SURGICAL HISTORY, ALLERGIES, HOME MEDICATIONS, SOCIAL HISTORY AND FAMILY HISTORY: Per H and P dictated by me on 05/08/2018. REVIEW OF SYSTEMS: CARDIAC: Complaints of some chest pain in precordial region. No shortness of breath or dyspnea on exertion. PULMONARY: No cough, sputum production or pleuritic chest pain. GASTROINTESTINAL: No nausea, vomiting, diarrhea or constipation. All else negative in 10 point review of system except as in HPI. PHYSICAL EXAMINATION: VITAL SIGNS: Upon arrival to the ER: Height 172.7 cm, weight 95.2 kilograms. Temperature 98.7, pulse 86, respiratory is 18, blood pressure 162/80, O2 saturation 95% on room air. GENERAL: She is alert, in no acute distress at time of exam. HEENT: Pupils are equal, round, reactive to light. Sclerae are anicteric. Oropharynx is clear. Mucous membranes are moist. NECK: Supple, no lymphadenopathy. CARDIOVASCULAR: At time of exam is regular rate and rhythm. LUNGS: Clear bilaterally. No wheezing. ABDOMEN: Soft. Bowel sounds are present, nontender to palpation. EXTREMITIES: No cyanosis, clubbing, edema. NEUROLOGIC: Grossly nonfocal. LABORATORY DATA: CBC: White count 6.0, hemoglobin 14.4, platelets 191. Differential: 57% neutrophils, 24% lymphocytes, 11% monocytes. Sodium 139, potassium 4.0, chloride 104, CO2 is 25, BUN 14, creatinine 0.89, glucose is 116, calcium is 9.0. Initial troponin 0.52, second troponin 0.67. Repeat troponin is 0.58. BNP is 738. IMAGING STUDIES: Chest x-ray shows no acute cardiopulmonary disease process. ASSESSMENT AND PLAN: 1. The patient is a 72-year-old woman here with elevated troponins and chest pain with no clear signs of cardiac ischemia. 1. We will continue current cardiovascular medications. 2. Give 1 dose of Lovenox and Cardiology consult. 3. She is scheduled for heart catheterization this morning. 4. Continue antibiotics for H. pylori gastritis. Time spent on 05/10/2018 is 45 minutes. Tony Mullins MD DR: VICTORINA/abhilash JOB# [id number] FINA
[2018-05-11] MEDS: AMOXIL PO SCH ×2 (09:00→20:12)
[2018-05-11 09:02] LABS: CARBON DIOXIDE 29.1 mmol/L (20.0-32)
[2018-05-11] MEDS: LOPRESSER PO SCH (09:09)
[2018-05-11] MEDS: BRILINTA PO SCH ×2 (09:09→20:12)
[2018-05-11] MEDS: CELEXA PO SCH (09:10)
[2018-05-11] MEDS: LIPITOR PO SCH (09:10)
[2018-05-11] MEDS: FLAGYL PO SCH ×3 (09:11→20:12)
--- NOTE | 2018-05-11 09:39 | PNH ---
DATE: 05/11/2018 SUBJECTIVE: She still has some mild chest pain. She has not been ambulating much yet. No other acute changes. OBJECTIVE: VITAL SIGNS: T-max last 24 hours is 98.1, pulse 72, respiratory rate is 18, blood pressure 120/65, O2 saturation 92% on room air. GENERAL: She is alert, in no acute distress at time of exam. HEENT: Pupils equal, round, reactive to light. Sclerae are anicteric. Oropharynx is clear. Mucous membranes are moist. NECK: Supple, no lymphadenopathy. CARDIOVASCULAR: At time of exam is regular rate and rhythm. LUNGS: Clear bilaterally. No wheezing. ABDOMEN: Soft. Bowel sounds are present, nontender to palpation. EXTREMITIES: No cyanosis, clubbing or significant edema. NEUROLOGIC: Grossly nonfocal. ASSESSMENT AND PLAN: At this point, the patient is 72-year-old woman here with Takotsubo cardiomyopathy with history of hypertension, coronary artery disease with H. pylori gastritis. 1. We will continue H. pylori treatment. 2. Continue current cardiovascular medications. She has Takotsubo's cardiomyopathy with normal coronaries and heart catheterization. 3. Ambulate as tolerated. Time spent on 05/11/2018 is 25 minutes. Tony Mullins MD DR: VICTORINA/abhilash JOB# [id number] FINA
[2018-05-11] MEDS: HYDROMORPHONE HCL IV PRN ×2 (15:10→20:12)
--- NOTE | 2018-05-11 16:30 | NUR ---
Pt a o x 4 verbalized needs, received sponge bath. denies any discomfort at this time. so continue to monitor the pT.
[2018-05-11] MEDS: PROTONIX PO SCH (20:13)
[2018-05-12] MEDS: XANAX PO PRN (00:18)
--- NOTE | 2018-05-12 00:33 | NUR ---
PT RATED PAIN AT 4. REFUSED SCHEDULED TYLENOL #3 . PT STATED SHE DIDN'T WANT TO TAKE PAIN MEDICINE AT THIS TIME. ASKED FOR XANAX INSTEAD TO RELAX HER STATES SHE IS ANXIOUS.
[2018-05-12] MEDS: HYDROMORPHONE HCL IV PRN (02:40)
[2018-05-12] MEDS: TYLENOL #3 PO SCH ×3 (04:00→08:00)
[2018-05-12 04:49] VITALS: BP 109/55
--- NOTE | 2018-05-12 06:50 | NUR ---
REPORT RECEIVED REPORT, ASSUMED CARE OF PT
[2018-05-12 08:11] VITALS: BP 118/70
--- NOTE | 2018-05-12 08:21 | PRM.DC ---
Discharge Summary Date of Discharge: May 12, 2018 Reason for Visit: Chest pain Patient History: Cerebrovascular disorder 32 MOTHER G8 BROTHER G8 BROTHER History Present Illness: (1) CAD (coronary artery disease) SEVERITY: MODERATE PERSISTENT Status: Chronic ICD Code: I25.10 - Atherosclerotic heart disease of nikolski coronary artery without angina pectoris SNOMED: 79906952 (2) Takotsubo syndrome Status: Resolved ICD Code: I51.81 - Takotsubo syndrome SNOMED: 920092234 (3) H. pylori infection Status: Acute ICD Code: A04.8 - Other specified bacterial intestinal infections SNOMED: 852634816 Assessment & Plan: Continue antibiotics for H pylori treatment General: Alert, Oriented X3, Cooperative, No acute distress HEENT: PERRLA, EOMI Neck: Supple, No JVD Lungs: Clear to auscultation, Normal air movement Heart: Regular rate, Normal S1, Normal S2 Abdomen: Normal bowel sounds, Soft, No tenderness Extremities: No cyanosis, No edema Skin: No breakdown Neuro: Normal speech, Strength at 5/5 X4 ext, Cranial nerves 3-12 NL Psych/Mental Status: Mood NL Results(Labs/Rad) Laboratory Tests Test 05/11/18 08:15 Sodium Level 140 mmol/L Potassium Level 4.9 mmol/L Chloride Level 105.0 mmol/L Carbon Dioxide Level 29.1 mmol/L Glucose Level 120 mg/dL Blood Urea Nitrogen 12 mg/dL Creatinine 0.89 mg/dL Calcium Level 9.0 mg/dL Anion Gap 10.8 Estimated GFR () 75.4 BUN/Creatinine Ratio 13.0 Troponin I 0.17 ng/mL Scheduled Acetaminophen With Codeine (Tylenol With Codeine #3 Tablet), 1 EACH PO Q4HR Amoxicillin (Amoxicillin), 1,000 MG PO BID Aspirin (Aspirin), 81 MG PO DAILY, (Reported) Aspirin (Sam[place] Chewable), 81 MG PO DAILY24, (Reported) Atorvastatin 40MG (Lipitor 40MG), 40 MG PO DAILY, (Reported) Atorvastatin 80MG (Lipitor 80MG), 1 TAB PO DAILY, (Reported) Cholecalciferol (Vitamin D3) (Vitamin D), 1,000 UNIT PO DAILY, (Reported) Cholecalciferol (Vitamin D3) (Vitamin D), 2,000 UNIT PO DAILY24, (Reported) Escitalopram Oxalate (Lexapro), 10 MG PO DAILY, (Reported) Escitalopram Oxalate (Lexapro), 1 TAB PO DAILY24, (Reported) Esomeprazole Magnesium (Nexium), 40 MG PO DAILY24, (Reported) Metoprolol Tartrate 25MG (Lopresser 25MG), 25 MG PO DAILY, (Reported) Metronidazole (Flagyl), 500 MG PO TID Multivitamin/Iron/Folic Acid (Centrum Complete Multivit Tab), 1 EACH PO DAILY24, (Reported) Ticagrelor (Brilinta), 90 MG PO BID, (Reported) Ticagrelor (Brilinta), 90 MG PO BID, (Reported) Vitamin E (Dl,Tocopheryl Acet) (Vitamin E), 400 UNIT PO DAILY24, (Reported) Scheduled PRN Alprazolam (Xanax), 0.25 MG PO PRN PRN for ANXIETY, (Reported) Promethazine Hcl (Promethazine Hcl), 1 TAB PO Q6 PRN for Nausea Zolpidem Tartrate (Ambien), 10 MG PO PRN PRN for MUSCLE SPASM, (Reported) Sepsis Evaluation @ Discharge 05/12/18 05:34 Course Sepsis Screening Results: Posi: NEGATIVE Sepsis Qualifier/Stage: NO DEFINITE RISK Vitals & review Data Vital Sign - Last 24 Hours 05/11/18 05/11/18 05/11/18 05/11/18 09:09 11:30 16:30 19:25 Temp 97.6 97.5 98.0 Pulse 81 70 72 63 Resp 20 20 18 B/P (MAP) 119/64 116/69 (85) 115/67 (83) 126/74 (91) Pulse Ox 94 O2 Delivery Room Air 05/11/18 05/12/18 05/12/18 05/12/18 23:46 00:29 04:49 08:11 Temp 98.1 98.2 98.8 Pulse 68 69 68 Resp 18 18 18 B/P (MAP) 128/69 (88) 109/55 (73) 118/70 (86) Pulse Ox 91 93 94 O2 Delivery Room Air Room Air Room Air Room Air Intake and Output 05/11/18 05/11/18 05/12/18 15:00 23:00 07:00 Intake Total 234 ml 200 ml Output Total 800 ml 600 ml Balance -566 ml -400 ml Laboratory Tests Test 05/11/18 08:15 Sodium Level 140 mmol/L Potassium Level 4.9 mmol/L Chloride Level 105.0 mmol/L Carbon Dioxide Level 29.1 mmol/L Glucose Level 120 mg/dL Blood Urea Nitrogen 12 mg/dL Creatinine 0.89 mg/dL Calcium Level 9.0 mg/dL Anion Gap 10.8 Estimated GFR () 75.4 BUN/Creatinine Ratio 13.0 Troponin I 0.17 ng/mL Current Medications Medications (Trade) Dose Ordered Sig/Temo PRN Reason Start Time Stop Time Status Last Admin Acetaminophen/ Codeine Phosphate (Tylenol #3) 1 each Q4HR 05/10/18 00:00 06/09/18 00:00 05/11/18 20:11 Alprazolam (Xanax) 0.25 mg PRN PRN ANXIETY 05/09/18 20:30 06/08/18 20:29 05/12/18 00:18 Amoxicillin (Amoxil) 1,000 mg BID 05/09/18 21:00 06/08/18 20:59 05/11/18 20:12 Aspirin (Aspirin) 325 mg DAILY PRN CHEST PAIN 05/09/18 19:00 06/08/18 18:59 05/09/18 18:53 Atorvastatin Calcium (Lipitor) 40 mg DAILY 05/10/18 09:00 06/09/18 08:59 05/11/18 09:10 Citalopram Hydrobromide (Celexa) 20 mg DAILY 05/10/18 09:00 06/09/18 08:59 05/11/18 09:10 Hydromorphone HCl (Hydromorphone HCl) 1 mg Q4H PRN PAIN 05/10/18 00:00 06/09/18 00:00 05/12/18 02:40 Metoprolol Tartrate (Lopresser) 25 mg DAILY 05/10/18 09:00 06/09/18 08:59 05/11/18 09:09 Metronidazole (Flagyl) 500 mg TID 05/09/18 21:00 06/08/18 20:59 05/11/18 20:12 Nitroglycerin (Nitrostat) 0.4 mg PRN PRN CHEST PAIN 05/09/18 20:00 06/08/18 19:59 Ondansetron HCl (Zofran) 4 mg Q4H PRN NAUSEA / VOMITING 05/10/18 00:00 06/09/18 00:00 05/10/18 14:58 Pantoprazole Sodium (Protonix) 40 mg DAILY24 05/09/18 20:30 06/08/18 20:29 05/11/18 20:13 Ticagrelor (Brilinta) 90 mg BID 05/09/18 21:00 06/08/18 20:59 05/11/18 20:12 Plan Discharge Date: May 12, 2018 Dicharge DX: 1. Takotsubo's cardiomyopathy, 2. CAD, 3. H pylori gastritis Discharge Disposition: Stable Plan Resume previous medications Diet and activity as tolerated Follow up with PCP 2-3 weeks Discharge plans discussed with patient, she is her own decision maker and does understand and concur with plans Time spent 25 minutes Problem Qualifiers (1) CAD (coronary artery disease): Coronary Disease-Associated Artery/Lesion type: nikolski artery [place] vs. transplanted heart: nikolski heart Associated angina: with stable angina Qualified Codes: I25.118 - Atherosclerotic heart disease of nikolski coronary artery with other forms of angina pectoris FAMILIA MOYER MD May 12, 2018 08:21
[2018-05-12] MEDS: CELEXA PO SCH (09:18)
[2018-05-12] MEDS: AMOXIL PO SCH (09:18)
[2018-05-12 09:22] VITALS: BP 118/70
--- NOTE | 2018-05-12 09:22 | NUR ---
DISCHARGE EDUCATION PROVIDED TO PT REGARDING HEART CATH SITE CARE, DIET, ACTIVITY LEVEL, AND FOLLOW UP APPOINTMENT. 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 PT IS WAITING IN ROOM AT THIS TIME FOR FAMILY TO ARRIVE. CALL LIGHT IN REACH. WILL CONTINUE TO MONITOR.
[2018-05-12] MEDS: FLAGYL PO SCH (09:24)
[2018-05-12] MEDS: LOPRESSER PO SCH (09:25)
[2018-05-12] MEDS: BRILINTA PO SCH (09:25)
[2018-05-12] MEDS: LIPITOR PO SCH (09:25)
--- NOTE | 2018-05-12 10:30 | NUR ---
DISCHARGE FAMILY AT BEDSIDE. PT TAKEN DOWN TO PRIVATE AUTO VIA WHEELCHAIR. NO S/S OF DISTRESS
== END 2018-05-12 11:45 | disposition home or self-care (01) ==
LOC: ER 17:57 → MS 19:58 → UNDODISOB 05-10 09:07 → EDPENDDISTM 05-12 09:22 → EDPENDDISDT 05-12 09:22
PROVIDERS: ADMIT Internal Medicine; ATTEND Internal Medicine
DX: I25.10 Atherosclerotic heart disease of native coronary artery without angina pectoris (principal); I51.81 Takotsubo syndrome; A04.8 Other specified bacterial intestinal infections; E78.5 Hyperlipidemia, unspecified; F32.9 Major depressive disorder, single episode, unspecified; J44.1 Chronic obstructive pulmonary disease with (acute) exacerbation; F11.20 Opioid dependence, uncomplicated; I21.4 Non-ST elevation (NSTEMI) myocardial infarction; H92.09 Otalgia, unspecified ear; R06.02 Shortness of breath; R10.13 Epigastric pain; R53.1 Weakness; G89.29 Other chronic pain; Z90.710 Acquired absence of both cervix and uterus; Z86.73 Personal history of transient ischemic attack (TIA), and cerebral infarction without residual deficits
CPT/HCPCS: 36415 ×3; 71045; 80048 ×2; 82550; 82553; 83880; 84484 ×4; 85025; 85379; 93005; 93458; 96372; 96374; 96375; 96376 ×3; 99152; 99153 ×3; 99291; C1760; C1887 ×2; C1894 ×5; G0378 ×64; J1644 ×2; J1650; J2250; J2405; J3010 ×2; J3490 ×8; J7030; Q9967; C1769; C1796; C1893

== ENCOUNTER 2019-08-16 15:24 | Emergency (ER) | payer MEDICARE, OTHER ==
[~2019-08-16] VITALS: Ht 170.2 cm; Wt 72.6 kg
[~2019-08-16 15:24] MED LIST changes: -PROM12.55 PO; +PROM12.57 PO
[2019-08-16 15:43] VITALS: BP 132/70
--- NOTE | 2019-08-16 15:57 | ER.PDOC ---
General Chief Complaint: Requesting Medical Care Stated Complaint: FEMALE Time seen by MD: 15:50 Source: patient Exam Limitations: no limitations History of Present Illness Initial Comments Dysuria, tenesmus, on urination, since this morning Timing/Duration: this morning Severity/Quality: moderate Associated Symptoms: dysuria, lower back pain, urinary frequency Prior symptoms/Treatment: Similar symptoms previous Allergies: Coded Allergies: morphine (Verified Allergy, Unknown, Hives, 05/07/18) niacin (Verified Allergy, Unknown, Rash, 05/07/18) warfarin (Verified Allergy, Unknown, Rash, 05/07/18) Home Meds Active Scripts Promethazine Hcl (PROMETHAZINE HCL) 12.5 Mg Tablet, 1 TAB PO Q6 PRN for Nausea for 7 Days, #20 TAB Prov:FAMILIA MOYER MD 05/09/18 Acetaminophen With Codeine (TYLENOL WITH CODEINE #3 TABLET) 1 Each Tablet, 1 EACH PO Q4HR for Pain for 7 Days, #20 TAB Prov:FAMILIA MOYER MD 05/09/18 Metronidazole (FLAGYL) 250 Mg Tablet, 500 MG PO TID for 5 Days, #15 TABLET Prov:FAMILIA MOYER MD 05/09/18 Amoxicillin (AMOXICILLIN) 500 Mg Capsule, 1000 MG PO BID for 5 Days, #20 CAPSULE Prov:FAMILIA MOYER MD 05/09/18 Reported Medications Vitamin E (Dl,Tocopheryl Acet) (Vitamin E) 100 Unit Capsule, 400 UNIT PO DAILY24, CAPSULE 05/07/18 Cholecalciferol (Vitamin D3) (Vitamin D) 2,000 Unit Tablet, 2000 UNIT PO DAILY24, TABLET 05/07/18 Multivitamin/Iron/Folic Acid (CENTRUM COMPLETE MULTIVIT TAB) 1 Each Tablet, 1 EACH PO DAILY24, TABLET 05/07/18 Aspirin (KIERRA CHEWABLE) 81 Mg Tab.chew, 81 MG PO DAILY24, TAB.CHEW 05/07/18 Ticagrelor (BRILINTA) 90 Mg Tablet, 90 MG PO BID, TABLET 05/07/18 Alprazolam (XANAX) 0.25 Mg Tablet, 0.25 MG PO PRN PRN for ANXIETY, TABLET 05/07/18 Zolpidem Tartrate (AMBIEN) 10 Mg Tablet, 10 MG PO PRN PRN for MUSCLE SPASM, TABLET 05/07/18 Esomeprazole Magnesium (NEXIUM) 40 Mg Capsule.dr 40 MG PO DAILY24 05/07/18 Escitalopram Oxalate (LEXAPRO) 10 Mg Tablet, 1 TAB PO DAILY24, #90 TAB 3 Refills 05/07/18 Atorvastatin 80MG (LIPITOR 80MG) 80 Mg Tablet, 1 TAB PO DAILY, #30 TAB 5 Refills 05/07/18 Cholecalciferol (Vitamin D3) (VITAMIN D) 1,000 Unit Capsule, 1000 UNIT PO DAILY, CAPSULE 08/10/17 Escitalopram Oxalate (LEXAPRO) 10 Mg Tablet, 10 MG PO DAILY, TABLET 08/10/17 Atorvastatin 40MG (LIPITOR 40MG) 40 Mg Tablet, 40 MG PO DAILY, TAB 08/10/17 Metoprolol Tartrate 25MG (LOPRESSER 25MG) 25 Mg Tablet, 25 MG PO DAILY for HYPERTENSION, #60 TAB 08/10/17 Aspirin (ASPIRIN) 81 Mg Tab.chew, 81 MG PO DAILY, TAB.CHEW 08/10/17 Ticagrelor (BRILINTA) 90 Mg Tablet, 90 MG PO BID, TABLET 08/10/17 Past Medical History Surgical History: appendectomy, cholecystectomy, hysterectomy, stent, tonsillec kip Social History Drug Use: none Review of Systems Genitourinary: see HPI All Other Systems: Reviewed and Negative Physical Exam General Appearance: No Apparent Distress, WD/WN EENT: eyes nml inspection, nml ENT inspection, pharynx nml Neck: nml inspection, non-tender Cardiovascular/Respiratory: Regular Rate, Rhythm, No M/R/G, Normal Peripheral Pulses, No JVD, Normal Breath Sounds, No Respiratory Distress Abdomen: Normal Bowel Sounds, Soft, No Organomegaly, No Pulsatile Mass, Tenderness (suprapubic) Back: CVA tenderness (left) Extremities: Normal Range of Motion, Non-Tender, Normal Inspection, No Pedal Edema, No Calf Tenderness, Normal Capillary Refill Neurologic/Psychiatric: dye room helper II-XII NML as Tested, No Motor/Sensory Deficits, Alert, Normal Mood/Affect, Oriented x 3 Skin: Normal Color, Warm/Dry Lymphatic: No Adenopathy Results/Orders Results/Orders Orders - XAVI JENKINS MD Urinalysis (08/16/19 15:44) Urine Culture (08/16/19 15:37) Vital Signs Date Time Temp Pulse Resp B/P (MAP) Pulse Ox O2 Delivery O2 Flow Rate FiO2 08/16/19 15:59 97.5 67 16 132/70 (90) 93 Room Air 08/16/19 15:43 97.5 67 16 93 Room Air 08/16/19 15:43 97.5 67 16 Laboratory Tests Test 08/16/19 15:37 Urine Collection Type CCMS Urine Color YELLOW (YELLOW) Urine Appearance CLOUDY (CLEAR) H Urine Bilirubin NEGATIVE MG/DL (NEGATIVE) Urine Ketones 5 mg/dL (NEGATIVE) H Urine Specific [place] 1.025 (1.005-1.035) Urine pH 5 (5.0-6.0) Urine Protein 15 mg/dL (NEGATIVE) H Urine Urobilinogen NORMAL (NEGATIVE) Urine Nitrate NEGATIVE (NEGATIVE) Urine Leukocyte Esterase 500/uL 2+ (NEGATIVE) Urine Blood NEGATIVE (NEGATIVE) Urine RBC 0-2 RBC/HPF (NONE SEEN) Urine WBC TNTC WBC/HPF (0-2) H Urine Squamous Epithelial Cells FEW #/HPF (FEW) Urine Bacteria FEW (NONE SEEN) H Urine Glucose NORMAL (NEGATIVE) Departure Time of Disposition: 16:32 Disposition: 01 HOME, SELF-CARE Impression: Primary Impression: UTI (urinary tract infection) Condition: Stable Patient Instructions: Urinary Tract Infection Referrals: PCP,UNKNOWN (PCP) PRIMARY CARE PROVIDER Duration or Time Spent with Pa: 10 XAVI JENKINS MD Aug 16, 2019 15:57
[2019-08-16 15:59] VITALS: BP 132/70
[2019-08-16 16:08] LABS: BILIRUBIN,URINE NEGATIVE (NEGATIVE); UROBILINOGEN,URINE NORMAL (NEGATIVE)
[2019-08-16 16:25] LABS: APPEARANCE,URINE CLOUDY (CLEAR); UA COLOR YELLOW (YELLOW)
== END 2019-08-16 17:00 | disposition home or self-care (01) ==
LOC: ER 15:24
DX: N39.0 Urinary tract infection, site not specified (principal); Z79.82 Long term (current) use of aspirin; Z79.899 Other long term (current) drug therapy; Z88.5 Allergy status to narcotic agent; Z90.49 Acquired absence of other specified parts of digestive tract; Z90.710 Acquired absence of both cervix and uterus
CPT/HCPCS: 81000; 87077; 87086; 87186; 99284

== ENCOUNTER 2020-04-19 20:29 | Emergency (ER) | payer MEDICARE, OTHER ==
[~2020-04-19] VITALS: Ht 172.7 cm; Wt 99.8 kg
[2020-04-19 20:35] VITALS: BP 148/96
--- NOTE | 2020-04-19 20:45 | ER.PDOC ---
General Chief Complaint: Requesting Medical Care Stated Complaint: HIP & LEG INJURY Time seen by MD: 20:42 Source: patient Exam Limitations: no limitations History of Present Illness Initial Comments Pt c/o fall 2 days ago with injury to head, left elbow and left knee. She is on Brillenta and has had a persistent headache. She doesn't know what caused her to fall--perhaps a syncopal episode. Where Occured: home Quality: mild (patient has been ambulatory since the fall) Method of Injury/Prior Injury: fell Location: other (left knee and elbow) Symptoms prior to fall: denies symptoms Other Injuries: blow to head Allergies: Coded Allergies: morphine (Verified Allergy, Unknown, Hives, 05/07/18) niacin (Verified Allergy, Unknown, Rash, 05/07/18) warfarin (Verified Allergy, Unknown, Rash, 05/07/18) Past Medical History Medical History: CVA/TIA/stroke, coronary artery disease Surgical History: cardiac cath, angioplasty, stent Social History Drug Use: none Review of Systems Constitutional: no symptoms reported EENTM: no symptoms reported Respiratory: no symptoms reported Cardiovascular: no symptoms reported Gastrointestinal: no symptoms reported Genitourinary: frequency Musculoskeletal: joint pain (left elbow and knee) Skin: other (bruising noted to LLE at knee) Physical Exam General Appearance: No Apparent Distress, WD/WN Extremities: no pedal edema, soft tissue injury (bruising to left knee and ankle) Neck: nml inspection, non-tender Cardiovascular/Respiratory: Regular Rate, Rhythm, Normal Breath Sounds, No Respiratory Distress Back: Normal Inspection Extremities: Tenderness (proximal anterior tibia and olecranon of elbow (L)) Neuro/Psych: Alert, mood/effect nml, No Motor/Sensory Deficits Results/Orders Results/Orders Orders - JOSUE ALFONSO DO Cbc With Auto Diff (04/19/20 20:42) Comprehensive Metabolic Panel (04/19/20 20:42) Creatine Kinase (04/19/20 20:42) Creatine Kinase Mb (04/19/20 20:42) Troponin I (04/19/20 20:42) Probnp B-Type Thread Winder Automatic (04/19/20 20:42) PT (04/19/20 20:42) Partial Thromboplastin Time. (04/19/20 20:42) Xr Chest 1v (04/19/20 20:42) Ekg-Routine (04/19/20 20:42) Saline Lock (04/19/20 20:42) Ct Head Wo Contrast (04/19/20 20:42) Xr Elbow Lt (04/19/20 20:42) Urinalysis (04/19/20 20:48) Xr Foot Lt (04/19/20 20:58) Urine Culture (04/19/20 20:54) Ceftriaxone Sodium (Rocephin) (04/19/20 21:05) Xr Knee Lt 3v (04/19/20 20:42) Lidocaine Hcl (Lidocaine 1% Vial) (04/19/20 21:33) Ceftriaxone Sodium (Rocephin) (04/19/20 21:33) Vital Signs Date Time Temp Pulse Resp B/P (MAP) Pulse Ox O2 Delivery O2 Flow Rate FiO2 04/19/20 21:44 97.9 70 16 97 Room Air 04/19/20 20:35 97.9 70 16 97 Room Air 04/19/20 20:35 97.9 70 16 04/19/20 20:35 97.9 70 16 97 Administered Medications Medications (Trade) Dose Ordered Sig/Temo Route PRN Reason Start Time Stop Time Status Last Admin Dose Admin Ceftriaxone Sodium 1 gm/ Sodium Chloride 100 ml @ 100 mls/hr STAT STAT IV 04/19/20 21:05 04/19/20 22:04 04/19/20 21:41 100 MLS/HR Laboratory Tests Test 04/19/20 20:54 04/19/20 20:58 Urine Collection Type VOID Urine Color YELLOW (YELLOW) Urine Appearance CLOUDY (CLEAR) H Urine Bilirubin NEGATIVE MG/DL (NEGATIVE) Urine Ketones NEGATIVE (NEGATIVE) Urine Specific [place] 1.020 (1.005-1.035) Urine pH 5.0 (5.0-6.0) Urine Protein NEGATIVE (NEGATIVE) Urine Urobilinogen NORMAL (NEGATIVE) Urine Nitrate POSITIVE (NEGATIVE) H Urine Leukocyte Esterase 2+ (NEGATIVE) Urine Blood NEGATIVE (NEGATIVE) Urine RBC NONE SEEN RBC/HPF (NONE Urine WBC TNTC WBC/HPF (0-2) H Urine Squamous Epithelial Cells FEW #/HPF (FEW) Urine Bacteria MANY (NONE SEEN) H Urine Glucose NEGATIVE (NEGATIVE) White Blood Count 7.8 10^3/uL (4.5-11.0) Red Blood Count 4.75 10^6/uL (4.00-5.20) Hemoglobin 15.4 g/dL (12.0-15.0) H Hematocrit 44.0 % (36.0-46.0) Mean Corpuscular Volume 92.6 fL (78-100) Mean Corpuscular Hemoglobin 32.4 pg (26-34) Mean Corpuscular Hemoglobin Concent 35.0 g/dL (33-36.5) Red Cell Distribution Width 13.1 % (11.5-14.5) Platelet Count 170 10^3/uL (150-400) Mean Platelet Volume 10.3 fL (7.8-11.0) Neutrophils (%) (Auto) 59.3 % (41.0-85.0) Lymphocytes (%) (Auto) 27.8 % (24.0-44.0) Monocytes (%) (Auto) 10.2 % (5.0-12.0) Neutrophils # (Auto) 4.6 10^3/uL (1.8-7.7) Lymphocytes # (Auto) 2.16 10^3/uL1 (1.0-4.8) Monocytes # (Auto) 0.8 10^3/uL (0.3-0.8) Absolute Immature Granulocyte (auto 0.01 10^3 u/L (0-2) Absolute Eosinophils (auto) 0.2 10^3/uL (0.0-0.2) Immature Granulocytes % 0.10 % (0.00-0.50) Eosinophils % 2.2 % (0.0-5.0) Basophils % 0.4 % (0.0-0.2) H Basophils # 0.0 10^3/uL (0.0-0.1) Prothrombin Time 10.2 SEC (9.3-11.3) Prothrombin Time INR (Non-Therap) 1.0 Activated Partial Thromboplast Time 23.4 SEC (24.67-30.72) Sodium Level 138 mmol/L (132-145) Potassium Level 4.6 mmol/L (3.6-5.2) Chloride Level 103.0 mmol/L (96-109) Carbon Dioxide Level 27.5 mmol/L (20.0-32) Anion Gap 12.1 Blood Urea Nitrogen 21 mg/dL (7-18) H Creatinine 0.83 mg/dL (0.59-1.40) Estimated GFR () 81.3 (>/=60) Est GFR (CKD-EPI)(Non-Afr [place]) 67.2 (>/=60) BUN/Creatinine Ratio 25.0 Glucose Level 98 mg/dL (70-110) Calcium Level 9.6 mg/dL (8.4-10.5) Total Bilirubin 0.4 mg/dL (0.2-1.0) Aspartate Amino Transferase (AST) 33 U/L (0-35) Alanine Aminotransferase (ALT) 44 U/L (12-78) Alkaline Phosphatase 152 U/L (50-136) H Total Creatine Kinase 174 U/L (26-192) Creatine Kinase MB 1.7 ng/mL (0.5-3.6) Troponin I < 0.02 ng/mL (0.00-0.05) Pro-B-Type Natriuretic Peptide 188 pg/mL (0-125) H Total Protein 7.2 g/dL (6.4-8.2) Albumin 4.1 g/dL (3.4-5.0) Globulin 3.1 Progress Progress cardiac enzymes normal EKG/XRAY/CT/US EKG: NSR, no ST T wave changes XRAY Comments: knee, elbow, chest and foot are normal CT Comments: no ICH Departure Time of Disposition: 21:59 Disposition: 01 HOME, SELF-CARE Impression: Primary Impression: UTI (urinary tract infection) Additional Impression: Contusion Condition: Stable Patient Instructions: Urinary Tract Infection Referrals: CRYSTAL MARAVILLA MD (PCP) PRIMARY CARE PROVIDER Additional Instructions: Take antibiotics until all gone. Duration or Time Spent with Pa: 20 min Problem Qualifiers Primary Impression: UTI (urinary tract infection) Urinary tract infection type: acute cystitis Hematuria presence: without hematuria Qualified Codes: N30.00 - Acute cystitis without hematuria Additional Impression: Contusion Encounter type: initial encounter Contusion area: lower leg Laterality: left Qualified Codes: S80.12XA - Contusion of left lower leg, initial encounter JOSUE ALFONSO DO April 19, 2020 20:45
[2020-04-19 21:01] LABS: APPEARANCE,URINE CLOUDY (CLEAR); UA COLOR YELLOW (YELLOW)
[2020-04-19 21:01] LABS: BASOPHIL % 0.4 % (0.0-0.2); EOSINOPHIL # 0.2 10^3/uL (0.0-0.2); EOSINOPHIL % 2.2 % (0.0-5.0); LYMPHOCYTES # 2.16 10^3/uL1 (1.0-4.8); LYMPHOCYTES % 27.8 % (24.0-44.0); MEAN CORP HGB 32.4 pg (26-34); MONOCYTES # 0.8 10^3/uL (0.3-0.8); MONOCYTES % 10.2 % (5.0-12.0); NEUTROPHIL # 4.6 10^3/uL (1.8-7.7); NEUTROPHILS % 59.3 % (41.0-85.0); PLATELET COUNT 170 10^3/uL (150-400); RED CELL DISTRIBUTION WIDTH 13.1 % (11.5-14.5)
[2020-04-19 21:02] LABS: BILIRUBIN,URINE NEGATIVE (NEGATIVE); UROBILINOGEN,URINE NORMAL (NEGATIVE)
[2020-04-19] MEDS ORDERED: ROCEPHIN 1 GM in NS 100ML 100 ML IV STA (21:05)
[2020-04-19 21:28] LABS: ALANINE AMINOTRANSFERASE(ML) 44 U/L (12-78); ALKALINE PHOSPHATASE 152 U/L (50-136); ASPARTATE AMINO TRANSFERASE 33 U/L (0-35); CALCIUM 9.6 mg/dL (8.4-10.5); CARBON DIOXIDE 27.5 mmol/L (20.0-32); GLUCOSE 98 mg/dL (70-110)
[2020-04-19] MEDS ORDERED: LIDOCAINE 1% VIAL ONE (21:33)
[2020-04-19] MEDS ORDERED: ROCEPHIN ONE (21:33)
--- NOTE | 2020-04-19 21:37 | NUR ---
PATIENT BACK IN ROOM FROM RADIOLOGY
--- NOTE | 2020-04-19 21:39 | DIREP ---
PROCEDURE:CT HEAD WITHOUT CONTRAST TECHNIQUE:Axial cuts were obtained through the head, without intravenous contrast material. The images were viewed at brain and bone settings. COMPARISON:None. INDICATIONS:head injury FINDINGS: VENTRICLES:Normal. CEREBRUM:Normal. CEREBELLUM:Normal. BRAINSTEM:Normal. SKULL:Normal. SINUSES:Normal. OTHER:Calcification in the carotid siphons. CONCLUSION:No acute abnormalities. Dictated by: Rich Blue M.D. on 04/19/2020 at 09:36 PM
--- NOTE | 2020-04-19 21:40 | DIREP ---
PROCEDURE:XRAY KNEE 3 VIEWS-LT COMPARISON:None. INDICATIONS:injury FINDINGS: BONES:Normal. JOINTS:Normal. SOFT TISSUES:Normal. OTHER:No additional findings. CONCLUSION:Normal left knee. Dictated by: Rich Blue M.D. on 04/19/2020 at 09:39 PM
--- NOTE | 2020-04-19 21:40 | DIREP ---
PROCEDURE:XRAY FOOT MIN 3 VWS-LT COMPARISON:None. INDICATIONS:injury FINDINGS: BONES:Normal. JOINTS:Normal. SOFT TISSUES:Normal. OTHER:No additional findings. CONCLUSION:Normal left foot. Dictated by: Rich Blue M.D. on 04/19/2020 at 09:38 PM
--- NOTE | 2020-04-19 21:41 | DIREP ---
PROCEDURE:CHEST 1 VIEW COMPARISON:[facility], CR, XRAY CHEST SINGLE VW, 05/09/2018, 06:26 PM. INDICATIONS:syncope FINDINGS: LUNGS/PLEURA:No significant pulmonary parenchymal abnormalities. No effusions. VASCULATURE:Normal. Unremarkable pulmonary vasculature. CARDIAC:Normal. No cardiac silhouette abnormality or cardiomegaly. MEDIASTINUM:Calcification in the aortic arch. BONES:Previous cervical spine surgery with plate and screws in place. OTHER:Surgical clips right upper quadrant of the abdomen. CONCLUSION:No acute cardiopulmonary abnormalities. Dictated by: Rich Blue M.D. on 04/19/2020 at 09:39 PM
--- NOTE | 2020-04-19 21:41 | DIREP ---
PROCEDURE:XRAY ELBOW 2VWS-LT COMPARISON:None. INDICATIONS:injury FINDINGS: BONES:Normal. JOINTS:Normal. No displaced anterior or posterior fat pads. SOFT TISSUES:Normal. OTHER:Normal. CONCLUSION:Normal left elbow. Dictated by: Rich Blue M.D. on 04/19/2020 at 09:40 PM
[2020-04-19 21:44] VITALS: BP 146/52
[2020-04-19 22:03] VITALS: BP 146/63
--- NOTE | 2020-04-20 23:13 | PCM.EKG ---
[facility] Test Date: 2020-04-19 Test Time: 21:25:38 Pat Name: WENDI Delgadopartment: Room: Gender: F Sidehand: TG : 1945 Requested By: JOSUE MARIE Order Number: [id number] Reading MD: Lucy Marie Measurements Intervals [place] Rate: 61 P: 10 CO: 170 QRS: 25 QRSD: 101 T: 37 QT: 437 QTc: 441 Interpretive Statements Sinus rhythm Compared to ECG 05/09/2018 18:04:15 Prolonged QT interval no longer present Electronically Signed On 04-21-2020 6:59:38 CDT by Lucy Marie Please click the below link to view image of tracing.
== END 2020-04-19 22:11 | disposition home or self-care (01) ==
LOC: ER 20:29
DX: S80.02XA Contusion of left knee, initial encounter (principal); S80.12XA Contusion of left lower leg, initial encounter; N39.0 Urinary tract infection, site not specified; I25.10 Atherosclerotic heart disease of native coronary artery without angina pectoris; Z86.73 Personal history of transient ischemic attack (TIA), and cerebral infarction without residual deficits; Z88.5 Allergy status to narcotic agent; W19.XXXA Unspecified fall, initial encounter; Y93.89 Activity, other specified; Y92.89 Other specified places as the place of occurrence of the external cause; Y99.8 Other external cause status
CPT/HCPCS: 36415; 70450; 71045; 73070; 73562; 73630; 80053; 81000; 82550; 82553; 83880; 84484; 85025; 85610; 85730; 87077; 87086; 87186; 93005; 96365; 99285; J0696 ×2; J2001; J7050; 99283

== ENCOUNTER 2021-03-28 13:28 | Emergency (ER) | payer MEDICARE, OTHER ==
[~2021-03-28] VITALS: Ht 172.7 cm; Wt 54.4 kg
[~2021-03-28 13:28] MED LIST changes: +VITA100C10 PO; -VITA100C8 PO
[2021-03-28 13:43] VITALS: BP 152/91
--- NOTE | 2021-03-28 13:47 | NUR ---
ARRIVAL PATIENT ARRIVED TO ED1 VIA W/C, C/O OF CHEST PAIN THAT STARTED TODAY, PATIENT DOES HAVE A CARDIAC HISTORY WITH STENTS BUT IS HERE FROM [place] VISITING, CHEST PAIN CONTINUES, DECIDED TO COME TO THE ED FOR EVAL, DOLL SURGEON APPLIED AND VITAL SIGNS OBTAINED, DOCTOR ALEXIA NOTIFIED OF PATIENT'S ARRIVAL.
[2021-03-28 13:54] LABS: BASOPHIL % 0.3 % (0.0-0.2); EOSINOPHIL # 0.1 10^3/uL (0.0-0.2); EOSINOPHIL % 1.4 % (0.0-5.0); LYMPHOCYTES # 1.92 10^3/uL1 (1.0-4.8); LYMPHOCYTES % 30.7 % (24.0-44.0); MEAN CORP HGB 31.3 pg (26-34); MONOCYTES # 0.5 10^3/uL (0.3-0.8); MONOCYTES % 8.3 % (5.0-12.0); NEUTROPHIL # 3.7 10^3/uL (1.8-7.7); NEUTROPHILS % 59.3 % (41.0-85.0); PLATELET COUNT 187 10^3/uL (150-400); RED CELL DISTRIBUTION WIDTH 12.8 % (11.5-14.5)
[2021-03-28] MEDS ORDERED: NITROSTAT SL STA (14:00)
--- NOTE | 2021-03-28 14:00 | PCM.EKG ---
[facility] Test Date: 2021-03-28 Test Time: 13:44:16 Pat Name: WENDI Delgadopartment: Room: Gender: F Veterinary Surgery Technologist: LOREN : 1945 Requested By: SANDY HALE Order Number: [id number] Reading MD: Sandy Hale Measurements Intervals [place] Rate: 69 P: -13 LA: 174 QRS: 2 QRSD: 99 T: 0 QT: 429 QTc: 460 Interpretive Statements Sinus rhythm Left ventricular hypertrophy Inferior infarct, old Compared to ECG 04/19/2020 21:25:38 Left ventricular hypertrophy now present Myocardial infarct finding now present Electronically Signed On 03-28-2021 18:34:22 CDT by Sandy Hale Please click the below link to view image of tracing.
[2021-03-28] MEDS ORDERED: MAGNESIUM SULFATE 50 ML IV ONE ×2 (14:17→14:30)
[2021-03-28 14:23] LABS: ALANINE AMINOTRANSFERASE(ML) 42 U/L (12-78); ALKALINE PHOSPHATASE 148 U/L (50-136); ASPARTATE AMINO TRANSFERASE 23 U/L (0-35); CALCIUM 8.9 mg/dL (8.4-10.5); CARBON DIOXIDE 26.1 mmol/L (20.0-32); GLUCOSE 95 mg/dL (70-110)
--- NOTE | 2021-03-28 14:41 | DIREP ---
PROCEDURE:CHEST 1 VIEW COMPARISON:[facility], CR, XRAY CHEST SINGLE VW, 04/19/2020, 09:00 PM. INDICATIONS:CHEST PAIN FINDINGS: LUNGS/PLEURA:Chronic mild asymmetric elevation of the right hemidiaphragm. No infiltrate or pleural effusion. CARDIAC:Normal cardiac silhouette and normal pulmonary vascularity. Aortic arch calcifications. MEDIASTINUM:Normal. BONES:ACDF. OTHER:No additional findings. CONCLUSION:No acute cardiopulmonary process or significant change. Dictated by: Rosalia Rojas MD on 03/28/2021 at 02:38 PM
--- NOTE | 2021-03-28 15:10 | ER.PDOC ---
General Chief Complaint: Chest Pain-Cardiac Nature Stated Complaint: CP,SOB Time seen by : 14:00 Source: patient Exam Limitations: no limitations History of Present Illness Initial Comments while driving had some sharp chest pain and radiated to her left shoulder. She has known CAD, with 4 stents placed in 2017. She had a coronary Angiogram done 4 months ago which was normal. She is here visiting from out of town. Her chest pain resolved shortly after arrival to ED. Timing/Duration: 1/2 hour Severity/Quality: mild Radiation: arms (Left) Activities at Onset: other (Driving) Prior CP/Workup: Heart Attack, Other (Recent Coronary Angiogram negative) Modifying Factors: other (spontaneous) Nitro Today/Relief: No Nitro Taken Today Aspirin Today: 325 mg x 1 Prior symptoms/Treatment: Similar symptoms previous, Treated by Doctor Allergies: Coded Allergies: morphine (Verified Allergy, Unknown, Hives, 05/07/18) niacin (Verified Allergy, Unknown, Rash, 05/07/18) warfarin (Verified Allergy, Unknown, Rash, 05/07/18) Home Meds Active Scripts Promethazine Hcl (PROMETHAZINE HCL) 12.5 Mg Tablet, 1 TAB PO Q6 PRN for Nausea for 7 Days, #20 TAB Prov:FAMILIA MOYER MD 05/09/18 Acetaminophen With Codeine (TYLENOL WITH CODEINE #3 TABLET) 1 Each Tablet, 1 EACH PO Q4HR for Pain for 7 Days, #20 TAB Prov:FAMILIA MOYER MD 05/09/18 Metronidazole (FLAGYL) 250 Mg Tablet, 500 MG PO TID for 5 Days, #15 TABLET Prov:FAMILIA MOYER MD 05/09/18 Amoxicillin (AMOXICILLIN) 500 Mg Capsule, 1000 MG PO BID for 5 Days, #20 CAPSULE Prov:FAMILIA MOYER MD 05/09/18 Reported Medications Vitamin E (Dl,Tocopheryl Acet) (Vitamin E) 100 Unit Capsule, 400 UNIT PO DAILY24, CAPSULE 05/07/18 Cholecalciferol (Vitamin D3) (Vitamin D) 2,000 Unit Tablet, 2000 UNIT PO DAILY24, TABLET 05/07/18 Multivitamin/Iron/Folic Acid (CENTRUM COMPLETE MULTIVIT TAB) 1 Each Tablet, 1 EACH PO DAILY24, TABLET 05/07/18 Aspirin (KIERRA CHEWABLE) 81 Mg Tab.chew, 81 MG PO DAILY24, TAB.CHEW 05/07/18 Ticagrelor (BRILINTA) 90 Mg Tablet, 90 MG PO BID, TABLET 05/07/18 Alprazolam (XANAX) 0.25 Mg Tablet, 0.25 MG PO PRN PRN for ANXIETY, TABLET 05/07/18 Zolpidem Tartrate (AMBIEN) 10 Mg Tablet, 10 MG PO PRN PRN for MUSCLE SPASM, TABLET 05/07/18 Esomeprazole Magnesium (NEXIUM) 40 Mg Capsule.dr, 40 MG PO DAILY24 05/07/18 Escitalopram Oxalate (LEXAPRO) 10 Mg Tablet, 1 TAB PO DAILY24, #90 TAB 3 Refills 05/07/18 Atorvastatin 80MG (LIPITOR 80MG) 80 Mg Tablet, 1 TAB PO DAILY, #30 TAB 5 Refills 05/07/18 Cholecalciferol (Vitamin D3) (VITAMIN D) 1,000 Unit Capsule, 1000 UNIT PO DAILY, CAPSULE 08/10/17 Escitalopram Oxalate (LEXAPRO) 10 Mg Tablet, 10 MG PO DAILY, TABLET 08/10/17 Atorvastatin 40MG (LIPITOR 40MG) 40 Mg Tablet, 40 MG PO DAILY, TAB 08/10/17 Metoprolol Tartrate 25MG (LOPRESSER 25MG) 25 Mg Tablet, 25 MG PO DAILY for HYPERTENSION, #60 TAB 08/10/17 Aspirin (ASPIRIN) 81 Mg Tab.chew, 81 MG PO DAILY, TAB.CHEW 08/10/17 Ticagrelor (BRILINTA) 90 Mg Tablet, 90 MG PO BID, TABLET 08/10/17 Past Medical History Medical History: cardiac problems Surgical History: cardiac cath, appendectomy, hysterectomy, stent Social History Alcohol Use: none Drug Use: none Reviewed Nursing Reviewed: Vital Signs, Abn. Noted, Nursing Assessment Constitutional: no symptoms reported; denies see HPI, denies chills, denies diaphoresis, denies fever, denies malaise, denies weakness, denies other EENTM: no symptoms reported; denies see HPI, denies eye pain, denies blurred vision, denies tearing, denies double vision, denies ear pain, denies ear discha rge, denies nose pain, denies nose congestion, denies throat pain, denies throat swelling, denies mouth pain, denies mouth swelling, denies other Respiratory: no symptoms reported; denies see HPI, denies cough, denies orthopnea, denies shortness of breath, denies SOB with exertion, denies SOB at rest, denies stridor, denies wheezing, denies other Cardiovascular: chest pain Gastrointestinal: no symptoms reported; denies see HPI, denies abdomen distended, denies abdominal pain, denies blood streaked bowels, denies constipated, denies diarrhea, denies difficulty swallowing, denies nausea, de nies poor appetite, denies poor fluid intake, denies rectal bleeding, denies vomiting, denies other Genitourinary: no symptoms reported; denies see HPI, denies burning, denies dysuria, denies discharge, denies frequency, denies flank pain, denies hematuria, denies incontinence, denies pain, denies urgency, denies other Musculoskeletal: no symptoms reported; denies see HPI, denies back pain, denies gout, denies joint pain, denies joint swelling, denies muscle pain, denies muscle stiffness, denies neck pain, denies other Skin: no symptoms reported; denies see HPI, denies change in color, denies change in hair/nails, denies dryness, denies lesions, denies lumps, denies rash, denies other Psychiatric/Neurological: no symptoms reported; denies see HPI, denies anxiety, denies depressed, denies emotional problems, denies headache, denies numbness, denies paresthesia, denies pre-existing deficit, denies seizure, denies tingling, denies tremors, denies weakness, denies other Endocrine: no symptoms reported; denies see HPI, denies excessive sweating, denies flushing, denies intolerance to cold, denies intolerance to heat, denies increased hunger, denies increased thrist, denies increased urine, denies unexplained weight gain, denies unexplaned weight loss, denies other Hematologic/Lymphatic: no symptoms reported; denies see HPI, denies anemia, denies blood clots, denies easy bleeding, denies easy bruising, denies swollen glands, denies other Physical Exam General Appearance: No Apparent Distress, WD/WN HEENT: PERRL/EOMI, Normal ENT Inspection, TMs Normal, Pharynx Normal Neck: Non-Tender, Full Range of Motion, Supple, Normal Inspection Respiratory: chest non-tender, lungs clear, normal breath sounds, no respiratory distress, no accessory muscle use Cardiovascular: Normal Peripheral Pulses, Regular Rate, Rhythm, No Edema, No Gallop, No JVD, No Murmur Gastrointestinal: Normal Bowel Sounds, No Organomegaly, No Pulsatile Mass, Non Tender, Soft Extremities: Normal Range of Motion, Non-Tender, Normal Inspection, No Pedal Edema, No Calf Tenderness, Normal Capillary Refill Neurologic/Psychiatric: tongue presser II-XII NML as Tested, No Motor/Sensory Deficits, Alert, Normal Mood/Affect, Oriented x 3 Skin: Normal Color, Warm/Dry Lymphatic: No Adenopathy Results/Orders Results/Orders Orders - SANDY HALE DO Cbc With Auto Diff (03/28/21 13:42) Comprehensive Metabolic Panel (03/28/21 13:42) Creatine Kinase (03/28/21 13:42) Creatine Kinase Mb (03/28/21 13:42) Troponin I (03/28/21 13:42) Probnp B-Type Practical Nurse Clinical Coordinator (03/28/21 13:42) PT (03/28/21 13:42) Partial Thromboplastin Time. (03/28/21 13:42) Helicobacter Pylori (03/28/21 13:42) D-Dimer (03/28/21 13:42) Xr Chest 1v (03/28/21 13:42) Ekg-Routine (03/28/21 13:42) Nitroglycerin (Nitrostat) (03/28/21 14:00) Magnesium 2 Gm/Water 50ml (Magnesium Sul (03/28/21 14:30) Magnesium 2 Gm/Water 50ml (Magnesium Sul (03/28/21 14:17) Vital Signs Date Time Temp Pulse Resp B/P (MAP) Pulse Ox O2 Delivery O2 Flow Rate FiO2 03/28/21 13:43 98.4 70 20 03/28/21 13:43 98.4 70 20 94 03/28/21 13:43 98.4 70 20 152/91 (111) 94 Room Air Administered Medications Medications (Trade) Dose Ordered Sig/Temo Route PRN Reason Start Time Stop Time Status Last Admin Dose Admin Magnesium Sulfate 50 ml @ 50 mls/hr OT ONCE IV 03/28/21 14:30 03/28/21 15:29 03/28/21 14:20 50 MLS/HR Laboratory Tests Test 03/28/21 13:49 White Blood Count 6.3 10^3/uL (4.5-11.0) Red Blood Count 4.92 10^6/uL (4.00-5.20) Hemoglobin 15.4 g/dL (12.0-15.0) H Hematocrit 46.0 % (36.0-46.0) Mean Corpuscular Volume 93.5 fL (78-100) Mean Corpuscular Hemoglobin 31.3 pg (26-34) Mean Corpuscular Hemoglobin Concent 33.5 g/dL (33-36.5) Red Cell Distribution Width 12.8 % (11.5-14.5) Platelet Count 187 10^3/uL (150-400) Mean Platelet Volume 9.8 fL (7.8-11.0) Neutrophils (%) (Auto) 59.3 % (41.0-85.0) Lymphocytes (%) (Auto) 30.7 % (24.0-44.0) Monocytes (%) (Auto) 8.3 % (5.0-12.0) Neutrophils # (Auto) 3.7 10^3/uL (1.8-7.7) Lymphocytes # (Auto) 1.92 10^3/uL1 (1.0-4.8) Monocytes # (Auto) 0.5 10^3/uL (0.3-0.8) Absolute Immature Granulocyte (auto 0 10^3 u/L (0-2) Absolute Eosinophils (auto) 0.1 10^3/uL (0.0-0.2) Immature Granulocytes % 0.00 % (0.00-0.50) Eosinophils % 1.4 % (0.0-5.0) Basophils % 0.3 % (0.0-0.2) H Basophils # 0.0 10^3/uL (0.0-0.1) Prothrombin Time 10.5 SEC (9.6-12.0) Prothrombin Time INR (Non-Therap) 1.0 Activated Partial Thromboplast Time 22.6 SEC (24.67-30.72) D-Dimer 0.22 mg/L (0.19-0.49) Sodium Level 140 mmol/L (132-145) Potassium Level 4.2 mmol/L (3.6-5.2) Chloride Level 104.0 mmol/L (96-109) Carbon Dioxide Level 26.1 mmol/L (20.0-32) Anion Gap 14.1 Blood Urea Nitrogen 18 mg/dL (7-18) Creatinine 0.83 mg/dL (0.59-1.40) Estimated GFR () 81.1 (>/=60) Est GFR (CKD-EPI)(Non-Afr [place]) 67.0 (>/=60) BUN/Creatinine Ratio 21.0 Glucose Level 95 mg/dL (70-110) Calcium Level 8.9 mg/dL (8.4-10.5) Total Bilirubin 0.5 mg/dL (0.2-1.0) Aspartate Amino Transferase (AST) 23 U/L (0-35) Alanine Aminotransferase (ALT) 42 U/L (12-78) Alkaline Phosphatase 148 U/L (50-136) H Total Creatine Kinase 79 U/L (26-192) Creatine Kinase MB 0.8 ng/mL (0.5-3.6) Troponin I < 0.02 ng/mL (0.00-0.05) Pro-B-Type Natriuretic Peptide 160 pg/mL (0-450) Total Protein 6.9 g/dL (6.4-8.2) Albumin 3.8 g/dL (3.4-5.0) Globulin 3.1 Albumin/Globulin Ratio 1.225 Helicobacter pylori Screen NEGATIVE (NEGATIVE) Progress Progress Patient with oxygen sat 87-90% while wearing mask. When mask off oxygen saturation 92-95% ER DEPART Departure Time of Disposition: 15:09 Disposition: 01 HOME, SELF-CARE Impression: Primary Impression: Chest pain Condition: Stable Patient Instructions: Chest Pain (Nonspecific) Referrals: PCP,UNKNOWN (PCP) PRIMARY CARE PROVIDER Additional Instructions: Follow up with PCP and [employer] upon return home. Avoid wearing a mask when able. Duration or Time Spent with Pa: 45 Problem Qualifiers Primary Impression: Chest pain Chest pain type: unspecified Qualified Codes: R07.9 - Chest pain, unspecified SANDY HALE DO Mar 28, 2021 15:10
[2021-03-28 15:36] VITALS: BP 141/83
== END 2021-03-28 15:37 | disposition home or self-care (01) ==
LOC: ER 13:28
DX: R07.89 Other chest pain (principal); I25.2 Old myocardial infarction; Z79.82 Long term (current) use of aspirin; Z79.899 Other long term (current) drug therapy; Z88.5 Allergy status to narcotic agent; Z90.710 Acquired absence of both cervix and uterus; Z95.5 Presence of coronary angioplasty implant and graft
CPT/HCPCS: 36415; 71045; 80053; 82550; 82553; 83880; 84484; 85025; 85379; 85610; 85730; 86677; 93005; 96365; 99285; J3475